=== PATIENT | male | born 1980 | race African-American/Black ===

== ENCOUNTER 2018-05-12 18:25 | Observation (INO) | payer SELFPAY ==
[2018-05-12 18:52] LABS: #Lymphocytes 0.8 thou/uL (1.20-3.40); #Monocytes 0.3 thou/uL (0.11-0.59); #Neutrophils 3.1 thou/uL (1.40-6.50); %Basophils 0.3 % (0.0-1.0); %Eosinophils 0.3 % (0.0-10.0); %Lymphocytes 18.1 % (21.0-51.0); %Monocytes 6.4 % (0.0-10.0); %Neutrophils 74.8 % (42.0-75.0); Hemoglobin 11.7 g/dL (14.0-18.0); Mean Corpuscular HGB CONC 33.6 g/dL (32.0-36.0); Mean Corpuscular Hemoglobin 31.7 pg (27.0-31.0); Mean Corpuscular Volume 94.4 fL (78.0-98.0); Mean Platelet Volume 6.9 fL (7.4-10.4); Platelet Count 212 thou/uL (130-400); White Blood Cell (WBC) Count 4.2 thou/uL (4.8-10.8)
[2018-05-12 19:18] LABS: ALT (SGPT) 44 U/L (8-55); AST (SGOT) 54 U/L (5-34); Alkaline Phosphatase 65 U/L (40-150); Anion Gap 19 mmol/L (10-20); BUN (Urea Nitrogen) 15 mg/dL (8.9-20.6); Bilirubin, Total 0.4 mg/dL (0.2-1.2); Calc. Creatinine Clearance 0 mL/min (70-130); Calcium 9.1 mg/dL (7.8-10.44); Carbon Dioxide 16 mmol/L (22-29); Chloride 108 mmol/L (98-107); Estimated GFR-MDRD 76; Globulin 4.1 g/dL (2.4-3.5); Glucose 70 mg/dL (70-105); Lipase 18 U/L (8-78); Potassium 3.9 mmol/L (3.5-5.1); Protein, Total 8.1 g/dL (6.0-8.3); Sodium 139 mmol/L (136-145)
[2018-05-12 19:41] LABS: Acetaminophen Less than 6.0 mcg/mL (10.0-30.0); Alcohol 36 mg/dL (Less than 10); Salicylate Less than 8.0 mg/dL (15.0-30.0)
[2018-05-12 19:41] LABS: Troponin I Less than 0.010 ng/mL (< 0.028)
[2018-05-12 20:59] LABS: Bilirubin Negative (Negative); Blood, Urine Negative (Negative); Clarity CLEAR (Clear); Glucose, Urine (Dipstick) Negative (Negative); Leukocyte Negative (Negative); Nitrite Negative (Negative); Protein, Urine (Dipstick) 30 mg/dL (Neg-Trace); Specific Gravity, Urine 1.033 (1.002-1.036); Urobilinogen 0.2 mg/dL (0.2-1.0); pH, Urine 5.5 (5.0-9.0)
[2018-05-12 21:00] LABS: Bacteria/HPF None Seen HPF (None Seen); Hyaline Casts/LPF 0-3 HYALINE CAST LPF (0-3 Hyaline); Pathc Cast-AUWi Flag 0.14 (0-2.49); RBC/HPF None Seen HPF (0-3); Squamous Epithelial 0-3 HPF (0-3); WBC/HPF 0-3 HPF (0-3)
[2018-05-12 21:09] LABS: Cocaine Metabolite Screen Detected (NotDetected); Medtox Reader # READER 1; Methamphetamine Not Detected (NotDetected); Opiate Screen Not Detected (NotDetected); Phencyclidine (PCP) Not Detected (NotDetected); THC/Cannabinoid Screen Not Detected (NotDetected)
[2018-05-12 21:10] LABS: Amphetamine Not Detected (NotDetected); Barbiturates Screen Not Detected (NotDetected); Benzodiazepine Screen Not Detected (NotDetected); Medtox Control Line Valid? VALID (VALID); Methadone Not Detected (NotDetected); Oxycodone Screen Not Detected (NotDetected); Tricyclic Screen Not Detected (NotDetected)
[2018-05-12] MEDS ORDERED: Acetaminophen 325 MG TAB PO PRN (22:42)
[2018-05-12] MEDS ORDERED: Ondansetron HCl/PF 4 MG/2 ML Vial IVP PRN (22:42)
[2018-05-12] MEDS ORDERED: Ondansetron ODT 4 MG TAB SL PRN (22:42)
[2018-05-12] MEDS ORDERED: Famotidine/PF 20 mg/2ml Vial SLOW IVP SCH (23:45)
[2018-05-13] MEDS: Sodium Chloride 0.9% 1,000 ML IV SCH ×2 (00:03→12:41)
[2018-05-13 00:22] LABS: Carbamazepine-Tegretol Less than 1.9 ug/mL (4.0-12.0)
[2018-05-13 00:26] VITALS: BMI 21.2
[2018-05-13 05:01] LABS: Anion Gap 9 mmol/L (10-20); BUN (Urea Nitrogen) 15 mg/dL (8.9-20.6); Calc. Creatinine Clearance 85 mL/min (70-130); Calcium 8.5 mg/dL (7.8-10.44); Carbon Dioxide 23 mmol/L (22-29); Chloride 107 mmol/L (98-107); Estimated GFR-MDRD Greater than 90; Glucose 137 mg/dL (70-105); Potassium 3.8 mmol/L (3.5-5.1); Sodium 135 mmol/L (136-145)
[2018-05-13 05:09] LABS: CKMB 3.3 ng/mL (0-6.6); Troponin I Less than 0.010 ng/mL (< 0.028)
[2018-05-13 05:12] LABS: #Lymphocytes 1.1 thou/uL (1.20-3.40); #Monocytes 0.4 thou/uL (0.11-0.59); #Neutrophils 1.1 thou/uL (1.40-6.50); %Basophils 0.6 % (0.0-1.0); %Eosinophils 1.4 % (0.0-10.0); %Lymphocytes 43.1 % (21.0-51.0); %Monocytes 14.4 % (0.0-10.0); %Neutrophils 40.5 % (42.0-75.0); Hemoglobin 11.3 g/dL (14.0-18.0); Mean Corpuscular HGB CONC 33.7 g/dL (32.0-36.0); Mean Corpuscular Hemoglobin 31.5 pg (27.0-31.0); Mean Corpuscular Volume 93.7 fL (78.0-98.0); Mean Platelet Volume 7.3 fL (7.4-10.4); Platelet Count 210 thou/uL (130-400); Red Blood Cell (RBC) Count 3.59 mill/uL (4.70-6.10); White Blood Cell (WBC) Count 2.7 thou/uL (4.8-10.8)
--- NOTE | 2018-05-13 08:58 | CT ---
CT BRAIN: 05/12/18 HISTORY: Patient with history of taking PCP, crack cocaine, altered mental status. CT images of the brain demonstrate the brain to be unremarkable. No evidence of intracranial masses, hemorrhages, strokes or contusions seen. Ventricles are of normal size. IMPRESSION: Normal CT brain. POS: [facility]
--- NOTE | 2018-05-13 08:58 | RAD ---
AP VIEW CHEST: 05/12/18 HISTORY: Altered mental status. Chest pain. AP view chest is obtained. The lungs are well aerated. No evidence of active intrathoracic disease se en. No evidence of effusions, pneumonia or pneumothorax seen. IMPRESSION: Unremarkable AP view chest. POS: [facility]
[2018-05-13] MEDS ORDERED: Famotidine/PF 20 mg/2ml Vial SLOW IVP SCH (09:00)
[2018-05-13] MEDS ORDERED: Enoxaparin Sodium 40 MG/0.4 ML SYRINGE SC SCH (09:00)
--- NOTE | 2018-05-13 09:02 | HP ---
CHIEF COMPLAINT: Possible altered mental status. HISTORY OF PRESENT ILLNESS: Patient is a 37-year-old male with a history of seizure who apparently i s on Tegretol and has not been taking his medication. Patient was very drowsy when I saw him in his room. However, he was able to answer a few questions and most of the history was reviewed from the [facility] and by the nursing staff. Apparently what happened was that the patient started feeling unwell, so he took 3 pills of his friend's Tegretol which he thought was Tegretol. He does not recall the d os[place] and initially stated that he had smoked possible even PCP when EMS arrived to pick him up. Th e patient was found of very lethargic on the floor by family who alerted the EMS, so while he was com ing into the hospital, he told the EMS that he had done some PCP; however, when he came in to our [facility] ER, patient was more alert and stated that he denied using any substance abuse. He only to ok his friend's 3 Tegretol to make him feel better. Patient is unable to tell me who prescribes him his Tegretol either. PAST MEDICAL HISTORY: Seizures. PAST SURGICAL HISTORY: None. FAMILY HISTORY: Patient does not recall anything. ALLERGIES: No known drug allergies. MEDICATIONS: He takes Tegretol, unknown dose. REVIEW OF SYSTEMS: All negative except the ones mentioned above in HPI. One more thing I would add is the patient did complain of some mild abdominal pain today. SOCIAL HISTORY: Patient denies any alcohol use or drug use. He states that he does smoke cigarettes , half a pack a day. LABORATORY DATA: As of the following: WBC of 4.2, hemoglobin of 11.7, hematocrit of 34.9, platelets of 212. Sodium of 139, potassium of 3.9, bicarbonate of 16, BUN of 15, creatinine 1.29, AST of 54, CK of 306. Troponin is less than normal. The patient also had a chest x-ray which I reviewed was tien bradley. CT scan read is still not available. PHYSICAL EXAMINATION: VITAL SIGNS: Temperature 98.5, pulse 76, respirations 16, O2 sat 100% on room air, blood pressure 12 2/88. GENERAL: He is awake, alert, oriented x3; however, appears very drowsy and is very hard to keep up. CARDIOVASCULAR: S1, S2 present. No murmurs, rubs or gallops. LUNGS: Clear to auscultation. No rhonchi or wheezes noted. ABDOMEN: Soft, mild tenderness in the epigastric area and left lower quadrant. Otherwise, bowel viri nds are present. NEUROLOGICAL: Intact. No focal neurological deficits noted. SKIN: Intact. No lesions noted. He does have some tattooing around. EKG: I did review the EKG. He did have a T-wave inversion in one lead. Currently, he is denying an y chest pain. Troponin x1 is negative, trended x3. ASSESSMENT AND PLAN: Patient is a very pleasant 37-year-old male who came into the hospital for alte red mental status. 1. Altered mental status, possible even a seizure versus overdose, I am not sure if this is an overd ose. Patient states that he took 3 pills of his friend. I am not sure if he was combining that with some substance abuse since he did have since his UDS was positive for cocaine. At this time, I will also check an EEG on him. I have requested the nursing staff to get a pharmacy, so we can call the pharmacy in the morning to get his dose of Tegretol and start him back on the medication. Also, we w ill check Tegretol level to make sure there is no overdose. In terms of that, patient stated that he did not try to hurt himself. He just thought that taking his friend's pills which was similar to hi s pills, we would make him feel a little bit better. 2. Epigastric pain. We will start the patient on a PPI. Continue to monitor. 3. Deep venous thrombosis prophylaxis. We will put patient on subQ heparin.
[2018-05-13 11:41] VITALS: BP 119/66; TEMP 98.1
--- NOTE | 2018-05-13 11:54 | PDOC.EVN ---
Event Note - Event Note Event Note: Record reviewed and patient examined. He's not sure what he took. Says a friend gave it to him and told him it was Tegretol so he took it. He does not routinely take Tegretol unless he is in intermediate. Says he can't afford it. He reports LLQ abdominal pain. Says it was present for 4-5 days. Normal B/B function. Eating and drinking well. No fever. TTP on exam, but exaggerated. Remainder of exam normal. Rechecking labs. If ok, will discharge. Recommend outpatient followup for the abdominal pain. WBC low. Tegretol level negative. Not likely agranulocytosis. Check HIV given his cocaine use. Recheck CK, Tegretol level.
[2018-05-13 13:05] LABS: Carbamazepine-Tegretol Less than 1.9 ug/mL (4.0-12.0)
[2018-05-13] MEDS ORDERED: Ibuprofen 600 MG TAB PO PRN (13:16)
[2018-05-13 14:03] LABS: HIV (1/2) Antibody/Antigen Reflxed Confirmation (NonReactive)
[2018-05-13 14:04] LABS: HIV 1/2 INDEX 895.91 S/CO (<1.00)
--- NOTE | 2018-05-13 22:03 | DIS ---
DATE OF ADMISSION: 05/12/2018 DATE OF DISCHARGE: 05/13/2018 DISCHARGE DIAGNOSES: 1. Altered mental status. 2. Drug ingestion. 3. Drug screen positive for cocaine. 4. Human immunodeficiency virus positivity, newly diagnosed. 5. Left lower quadrant pain. HOSPITAL COURSE: This patient is a 37-year-old male with a history of admitted cocaine use and histo ry of having been incarcerated. The patient presented via the emergency department after being found altered. The patient indicated that he takes Tegretol. He has been prescribed Tegretol to take for history of seizures. He does not take the medication routinely. He states that he was not able to afford it and usually only takes it when he is in retirement. The patient stated that he did not feel righ t, so he took 3 pills that a friend gave him and told him were Tegretol. He admits that he has no id ea what they actually were. Subsequently, he had some altered mental status and some obtundation and was brought to the emergency department. The patient's urinary drug screen was positive for cocaine . He complained of some epigastric pain and was started on a PPI. Overnight, the patient did well. Following morning, he states he only had some mild left lower quadrant abdominal pain, which he repo rts had been present for several days prior to this incident. He had been eating well, drinking well and having normal bowel and bladder habits. The remainder of exam was unremarkable. He was awake a nd alert and had a normal baseline mental status. His labs initially were notable for a white count of 4.2 with 78% neutrophils. We have repeated his white count and it was 2.7 with 45% neutrophils. He also initially had a CK at 306 and a Tegretol level was less than 1.9. The patient had repeat lab s following morning with a Tegretol level still being less than 1.9. CK was down to 186 and his trop onin remained negative. The patient was given some ibuprofen for his left lower quadrant pain. HIV screen was obtained in light of the leukopenia and this did in fact return are reactive. I met with the patient and told him of the results and educated him of the process of doing confirmation with zack send out lab. The patient reports that he has risk factors of both unprotected sex and IV drugs. He believes he had been tested in the past, but was never told results. He was educated on safe prac tices for living with HIV and told that he would need to follow up with the Infectious Disease doctor in order to get established on a treatment regimen. He was amenable to that plan and all of his que stions were answered. With that, the patient was felt to be stable for discharge to home. DISPOSITION: The patient will be discharged. He will have a normal diet and activity level. He is to follow up with Dr. Covington. He is encouraged to take the Tegretol whenever possible and establish w ith a PCP in order to be maintained on this. We will refer to Neurology for alternatives. Given the leukopenia, this is probably not the best choice for him because of the risk of agranulocytosis. Th erefore, I will not continue that with a prescription at this time and defer that to a PCP who will b e able to follow him. The patient should return to the emergency department should he have any probl ems prior to that time.
[2018-05-15 16:19] LABS: HIV 1 Antibody Multi-Spot Positive (Negative); HIV 2 Antibody Multi-Spot Negative (Negative); HIV Multi-spot Interp HIV-1 Positive (.)
== END 2018-05-13 15:14 | disposition home or self-care (01) ==
LOC: ERS 18:25 → 2SW 22:31
PROVIDERS: ADMIT Internal Medicine; ATTEND Internal Medicine
DX: R41.82 Altered mental status, unspecified (principal); T40.5X5A Adverse effect of cocaine, initial encounter; B20 Human immunodeficiency virus [HIV] disease; F17.210 Nicotine dependence, cigarettes, uncomplicated; Z79.899 Other long term (current) drug therapy
CPT/HCPCS: 36415; 70450; 71045; 80048; 80053; 80156; 80306; 80307; 81003; 81015; 82550; 82553; 83690; 83735; 84484; 85025; 86701; 86702; 87389; 93005; 94760; 96361; 96372; 96374; 96376; G0378; J1650; S0028

== ENCOUNTER 2019-06-18 05:27 | Emergency (ER) | payer SELFPAY ==
[2019-06-18] MEDS ORDERED: Dexamethasone 10 MG/ML VIAL ONE (07:45)
[2019-06-18] MEDS ORDERED: Azithromycin 250 MG TAB ONE (07:45)
[2019-06-18] MEDS ORDERED: Albuterol Sulfate 2.5 mg/3 ml Neb ONE (07:54)
--- NOTE | 2019-06-18 08:41 | RAD ---
PA AND LATERAL VIEWS CHEST: HISTORY: Chest pain, cough. FINDINGS: The heart size is normal. There is an infiltrate in the lung bases, left greater than right. No pne umothoraces or large effusions are seen. IMPRESSION: Bibasilar pneumonia. POS: OFF
--- NOTE | 2019-06-22 14:42 | EKG ---
Test Reason : CP Blood Pressure : / mmHG Vent. Rate : 088 BPM Atrial Rate : 088 BPM P-R Int : 174 ms QRS Dur : 092 ms QT Int : 378 ms P-R-T Axes : 079 068 082 degrees QTc Int : 457 ms Normal sinus rhythm Nonspecific T wave abnormality Abnormal ECG Confirmed by SCOOTER Colon, JITENDRA ([id number]), legal editor LEYLA FUENTES ([id number]) on 06/22/2019 2:42:19 PM Referred By: SCOOTER Confirmed By:JITENDRA HELMS M.D.
== END 2019-06-18 08:36 | disposition home or self-care (01) ==
LOC: ERS 05:27
DX: J20.9 Acute bronchitis, unspecified (principal); J45.909 Unspecified asthma, uncomplicated; F17.210 Nicotine dependence, cigarettes, uncomplicated
CPT/HCPCS: 71046; 93005; 94640; 96374; J1100; J7611; J7620

== ENCOUNTER 2019-07-08 13:29 | Emergency (ER) | payer SELFPAY ==
--- NOTE | 2019-07-08 14:40 | RAD ---
FRONTAL VIEW CHEST: Date: 07/08/19 COMPARISON: 06/18/19. INDICATION: History of chest pain and cough. FINDINGS: Persistent bibasilar densities remain. Cardiac silhouette is stable. No significant interval change o therwise depicted. IMPRESSION: Persistent bibasilar densities indicative of multifocal pneumonia. Follow-up to resolution is recommended. POS: [facility]
[2019-07-08 15:11] LABS: #Lymphocytes 1.2 thou/uL (1.20-3.40); #Monocytes 0.7 thou/uL (0.11-0.59); #Neutrophils 4.8 thou/uL (1.40-6.50); %Basophils 0.3 % (0.0-1.0); %Eosinophils 0.1 % (0.0-10.0); %Lymphocytes 17.1 % (21.0-51.0); %Monocytes 10.6 % (0.0-10.0); %Neutrophils 71.8 % (42.0-75.0); Hemoglobin 8.2 g/dL (14.0-18.0); Mean Corpuscular HGB CONC 33.3 g/dL (32.0-36.0); Mean Corpuscular Hemoglobin 29.9 pg (27.0-31.0); Mean Corpuscular Volume 89.8 fL (78.0-98.0); Mean Platelet Volume 7.6 fL (7.4-10.4); Platelet Count 345 thou/uL (130-400); Red Blood Cell (RBC) Count 2.73 mill/uL (4.70-6.10); White Blood Cell (WBC) Count 6.7 thou/uL (4.8-10.8)
[2019-07-08 16:04] LABS: ALT (SGPT) 13 U/L (8-55); AST (SGOT) 22 U/L (5-34); Albumin 3.3 g/dL (3.5-5.0); Alkaline Phosphatase 52 U/L (40-150); Anion Gap 14 mmol/L (10-20); BUN (Urea Nitrogen) 12 mg/dL (8.9-20.6); Bilirubin, Total 0.3 mg/dL (0.2-1.2); CK (CPK) 60 U/L (30-200); Calc. Creatinine Clearance 0 mL/min (70-130); Calcium 8.6 mg/dL (7.8-10.44); Carbon Dioxide 23 mmol/L (22-29); Chloride 103 mmol/L (98-107); Estimated GFR-MDRD Greater than 90; Globulin 4.6 g/dL (2.4-3.5); Glucose 94 mg/dL (70-105); Potassium 3.9 mmol/L (3.5-5.1); Protein, Total 7.9 g/dL (6.0-8.3); Sodium 136 mmol/L (136-145)
[2019-07-08] MEDS ORDERED: Azithromycin 250 MG TAB ONE (16:55)
== END 2019-07-08 17:06 | disposition home or self-care (01) ==
LOC: ERS 13:29
DX: J18.9 Pneumonia, unspecified organism (principal); Z71.6 Tobacco abuse counseling; J45.909 Unspecified asthma, uncomplicated; F17.210 Nicotine dependence, cigarettes, uncomplicated
CPT/HCPCS: 36415; 71045; 80053; 82550; 83605; 84484; 85025; 87040; 93005; 94640; 99406

== ENCOUNTER 2020-03-02 10:54 | Inpatient (IN) | payer OTHER ==
[2020-03-02] MEDS ORDERED: Propofol 1,000 MG/100 ML VIAL IV ONE (12:45)
[2020-03-02 13:03] LABS: Actual Bicarbonate (HCO3a) 23.5 mEq/L (22-28); Base Excess (BEa) -5.6 mEq/L (-2.0 to +3.0); Calcium, Ionized 1.08 mmol/L (1.12-1.30); Carboxyhemoglobin (COHb) 0.6 gm% (0.0-3.0); Hemoglobin (Hb) 11.7 g/dL (14.0-18.0); O2 Tension (PaO2) 76.4 mmHg (80.0-100.0); Potassium - ABG Lab 4.26 mmol/L (3.70-5.30)
[2020-03-02 13:08] LABS: CO2 Tension 64.2 mmHg (35.0-45.0); Puncture Site RR; pH, Arterial 7.18 (7.35-7.45)
[2020-03-02] MEDS ORDERED: Acetaminophen 325 MG/10.15 ML UDCUP PO PRN (13:41)
[2020-03-02] MEDS ORDERED: CCU Electrolyte Replacement 1 EACH IVPB ONE (13:41)
[2020-03-02] MEDS ORDERED: Ventilator Sedation Protocol 1 EACH FS SCH (13:45)
[2020-03-02] MEDS ORDERED: Lorazepam 2 MG/ML VIAL SLOW IVP PRN (13:56)
[2020-03-02] MEDS ORDERED: Morphine 2 MG/ML SYRINGE SLOW IVP PRN (13:56)
[2020-03-02] MEDS ORDERED: Potassium Phosphate 12 MMOL in Sodium Chloride 0.9% 250 ML 250 ML IV PRN (13:56)
[2020-03-02] MEDS ORDERED: fentaNYL Citrate/PF 2,000 MCG in Sodium Chloride 0.9% 60 ML IV SCH (13:56)
[2020-03-02] MEDS ORDERED: CCU ELECTROLYTE REPLACEMENT PROTOCOL FS PRN (13:56)
[2020-03-02] MEDS ORDERED: Fentanyl BOLUS 250 ML IVPB PRN (13:56)
[2020-03-02] MEDS ORDERED: PHOS-NAK 1 PKT PACK PO PRN ×2 (13:56)
[2020-03-02] MEDS ORDERED: Magnesium Oxide 400 MG TAB PO PRN ×2 (13:56)
[2020-03-02] MEDS ORDERED: Potassium Phosphate 9 MMOL in Sodium Chloride 0.9% 100 ML IVPB PRN (13:56)
[2020-03-02] MEDS ORDERED: DISCONTINUE PREVIOUS NARCOTIC PAIN MEDICATIONS AND BENZODIAZEPINES FS SCH (13:56)
[2020-03-02] MEDS ORDERED: Propofol BOLUS 1,000 MG/100 ML VIAL IV PRN (13:56)
[2020-03-02] MEDS ORDERED: Potassium Chloride 40 MEQ in Sodium Chloride 0.9% 250 ML 250 ML IVPB PRN (13:56)
[2020-03-02] MEDS ORDERED: Potassium Chloride 20 MEQ TAB PO PRN (13:56)
[2020-03-02] MEDS ORDERED: Potassium Chloride 40 MEQ in Premix Bag 1 BAG IVPB PRN (13:56)
[2020-03-02] MEDS ORDERED: Propofol 1,000 MG/100 ML VIAL IV PRN (13:56)
[2020-03-02] MEDS ORDERED: Magnesium 2 GM/50 ML 2 GM in Premix Bag 1 BAG IVPB PRN (13:56)
[2020-03-02] MEDS ORDERED: Potassium Phosphate 15 MMOL in Sodium Chloride 0.9% 250 ML 250 ML IV PRN (13:56)
--- NOTE | 2020-03-02 14:08 | PDOC.FPRHP ---
- History of Present Illness Chief Complaint: Fever History of Present Illness: 39yo male presents as a transfer from [facility] ED for acute hypoxic respiratory failure requiring intubation. Initially presented for fever. Reported fever, SOB x3 days with worsening symptoms. EMS recorded temp of 103.2. In the ED tachypnea, tachycardia. Reported to smoking 1ppd. Also reported he had been "runnin around [facility]." But denied COVID exposure. Reported some nausea. Denied vomiting and diarrhea. Due to his worsening respiratory status he was placed on a nonrebreather but continued to have worsening hypoxia therefore was intubated. Had CXR showing LLL infiltrate. He received Bactrim, Azithromycin, and Ceftriaxone prior to transfer. In his belongings his bottle of Biktarvy was found but label was worn and could only make out pharmacy in [place]. Pharmacist reported the last time this med had been picked up was Jul 2019. Was prescribed by Dr Covington. ED Course: NS 30mg/kg, Azithromycin 500mg, Ceftriaxone 2 g. - Allergies/Adverse Reactions Allergies Allergy/AdvReac Type Severity Reaction Status Date / Time No Known Allergies Allergy Verified 01/19/20 01:48 - Home Medications Medication Instructions Recorded Confirmed Type Unobtainable 05/12/18 05/12/18 History - History PMHx: HIV, Hx of seizures PSHx: Unable to obtain due to intubated. FHx: Unable to obtain Social: 1ppd smoker. Hx of drug use including cocaine per chart review. Unknown alcohol use - Review of Systems ROS unobtainable: due to endotracheal tube - Vital signs BP: 120/87 HR: 120 RR: 25 Tmax: 96.7 Pox: 98% on RA Wt: 56.7kg - Physical Exam -Constitutional: Intubated and sedated. HEENT: normocephalic and atraumatic, PERRLA Neck: trachea midline Heart: no murmurs/rubs/gallops (tachycardic), pulses present, no edema Lungs: other (Diffuse expiratory and inspiratory rhonchi and crackles) Abdomen: soft Musculoskeletal: normal structure Skin: no rash/lesions Heme/Lymphatic: no unusual bruising or bleeding FMR H&P: Results - Labs Lab results: ABG pH 7.18 (7.35-7.45) L* 03/02/20 13:00 ABG pCO2 64.2 mmHg (35.0-45.0) H* 03/02/20 13:00 ABG pO2 76.4 mmHg (80.0-100.0) L 03/02/20 13:00 - Radiology Interpretation Chest x-ray Status: report reviewed by me Additional comment: LLL infiltrate FMR H&P: A/P - Plan Sepsis 2/2 Acute hypoxic respiratory failure 2/2 pneumonia. - Leukopenia WBC 3, fever, initially tachycardic and tachypneic - PCP vs COVID vs bacterial - COVID swab pending. Flu neg. - Intubated / at [facility]. Initial AB.48/27.5/58.9/20.1 - CXR: LLL infiltrate - Due to HIV positive status will continue Azithromycin 500mg and Ceftriaxone 2g , Fluconazole with addition of Bactrim to cover PCP. Consulted Dr Covington for further recommendations. - More labs to follow at the recommendation of Dr Covington - Admit to ICU, will initiate Sedation protocol. - Will consult pulmonology HIV - Noncompliant with Biktarvy - Will need started on antivirals. - Follows with Dr Covington, consulted, apprec recs - Ordered CD4 and viral load. Normocytic Anemia - Hgb 10.1, Improved from 8.2 last admission. - Ordered Iron/Vit B12/folic acid studies and peripheral smear. Transaminitis - AST/ALT ratio >2 suggest alcohol. Hyponatremia - 130, ordered urine studies Hx of seizures - Per chart review was on Carbamazepime. Only takes while in detention as he cannot afford it. Hx of drug abuse - Ordered UDS Hx of Incarceration DVT ppx: Lovenox GI ppx: Famotidine Dispo: Admit to ICU. >48hrs FMR H&P: Upper Level - Plan Date/Time: 03/02/20 [id number] I, [], have evaluated this patient and agree with findings/plan as outlined by graduate internship resident. Pertinent changes/additions are listed here. Addendum - Attending - Attending Attestation Date/Time: 03/02/20 5930 I personally evaluated the patient and discussed the management with Dr. Alexander I agree with the History, Examination, Assessment and Plan documented above with any addition or exceptions noted below - 39 yo male with h/o HIV and possibly seizure d/o presented to ER with complaint of fever and SOB. Symptoms started in last 304 days. Initially placed on 2L NC but had progressive increased work of breathing and decreasing O2 sats- changed to non- rebreather and then intubated due to continued declining status. Prior to intubation did endorse that he had not been taking his antiretrovirals and had not seen Dr. Covington in some time. PMH/Meds/SH reviewed and agree with resident's documentation. T 103.2 (@CSER). BP 120/87 P120 RR18 92% Exam repeated by me and agree with resident's findings. Labs: WBC=3.0, Hgb10.1. CXR- LLL infiltrate. A/P: 1) Sepsis secondary to pneumonia uncertain type - Admit to ICU. Vent support. Pulmonary consulted and appreciate recommendations. Continue Rocephin/Zithromax/Bactrim. Blood, urine cultures collected. COVID swab pending. 2) HIV (+)- consult ID. Appreciate recommendations. Will check CD4 count and viral load. Antiretrovirals started as per ID.
[2020-03-02 14:43] LABS: Actual Bicarbonate (HCO3a) 23.2 mEq/L (22-28); Base Excess (BEa) -3.4 mEq/L (-2.0 to +3.0); CO2 Tension 48.2 mmHg (35.0-45.0); Calcium, Ionized 1.06 mmol/L (1.12-1.30); Carboxyhemoglobin (COHb) 0.2 gm% (0.0-3.0); Hemoglobin (Hb) 11.1 g/dL (14.0-18.0); Potassium - ABG Lab 4.18 mmol/L (3.70-5.30)
[2020-03-02 14:45] LABS: O2 Tension (PaO2) 54.9 mmHg (80.0-100.0); Puncture Site LRA
[2020-03-02] MEDS: Vecuronium 10 MG VIAL IVP PRN ×2 (14:49→22:30)
[2020-03-02] MEDS: Sodium Chloride 0.9% 1,000 ML IV SCH (15:19)
[2020-03-02] MEDS: Azithromycin 500 MG in Sodium Chloride 0.9% 250 ML 250 ML IVPB SCH (16:25)
[2020-03-02] MEDS: cefTRIAXone\\ROCEPHIN 2 GM in Sodium Chloride 0.9% 100 ML IVPB SCH (18:06)
[2020-03-02] MEDS: methylPREDNISolone Sod Succ 40 MG VIAL IVP SCH (18:09)
[2020-03-02 18:16] LABS: Amphetamine Not Detected (NotDetected); Barbiturates Screen Not Detected (NotDetected); Benzodiazepine Screen Not Detected (NotDetected); Cocaine Metabolite Screen Detected (NotDetected); Medtox Control Line Valid? VALID (VALID); Medtox Reader # READER 4; Methadone Not Detected (NotDetected); Methamphetamine Not Detected (NotDetected); Opiate Screen Not Detected (NotDetected); Oxycodone Screen Not Detected (NotDetected); Phencyclidine (PCP) Not Detected (NotDetected); THC/Cannabinoid Screen Not Detected (NotDetected); Tricyclic Screen Not Detected (NotDetected)
[2020-03-02] MEDS: Fluconazole In NaCl,Iso-Osm 100 MG in Admixture Fee 2 EACH IVPB SCH (18:16)
[2020-03-02] MEDS ORDERED: Sterile Water 10 ML ONE (19:53)
[2020-03-02] MEDS: Lopinavir/Ritonavir 80 MG/20 MG per ML Oral Solution PER TUBE SCH (20:30)
[2020-03-02] MEDS: Famotidine/PF 20 mg/2ml Vial SLOW IVP SCH (20:31)
[2020-03-02] MEDS: DEXTROSE 5% IVPB SCH (20:32)
[2020-03-02] MEDS: SULFAMETHOXAZOLE IVPB SCH (20:32)
[2020-03-02] MEDS: WATER IVPB SCH (20:32)
[2020-03-02] MEDS: TRIMETHOPRIM IVPB SCH (20:32)
--- NOTE | 2020-03-02 20:38 | CON ---
DATE OF CONSULTATION: 03/02/2020 CONSULTING PHYSICIAN: Dr. Lim. REASON FOR CONSULTATION: Pneumonia, acute respiratory failure. The following encompasses 45 minutes of critical care time. HISTORY OF PRESENT ILLNESS: The patient is a 39-year-old male, who presented to the [facility] Emergency Room with a 2-week history of cough, high fever, and shortness of breath. He has a known history of HIV, but has not been taking his medications. The patient is intubated at the time of my exam and cannot give a history, so what I have is obtained from the ER documentation at that facility. According to the ER note, he slowly decompensated in the ER and was not oxygenating very well. Therefore, he was endotracheally intubated prior to transfer to this facility. I have had the opportunity to see both preintubation and postintubation x-rays from that facility as a left lower lobe infiltrate. PAST MEDICAL HISTORY: HIV. PAST SURGICAL HISTORY: Left arm surgery in the past. HOME MEDICATIONS: Apparently, he has not been taking any. SOCIAL HISTORY: The patient smokes one pack per day. Does not consume alcohol. Does not use street drugs. Never had tuberculosis. Denied any COVID-19 exposure. REVIEW OF SYSTEMS: Cannot be obtained because the patient is currently on mechanical ventilation. PHYSICAL EXAMINATION: VITAL SIGNS: His heart rate is 113, O2 saturation 94%, respiratory rate 25, and his temperature 103.2. The patient is currently intubated on mechanical ventilation. GENERAL: Appears calm. HEENT: Pupils reactive 2 mm. Oropharynx, poor color. NECK: No adenopathy or JVD. LUNGS: Diffuse crackles more so on the left than the right. CARDIOVASCULAR: S1 and S2. Tachycardic. No murmur. ABDOMEN: Soft. No hepatosplenomegaly. EXTREMITIES: No clubbing, cyanosis, or edema. LABORATORY DATA: ABG; pH 7.18, pCO2 of 64, pO2 of 76 that is on SIMV rate 16, tidal volume 450, PEEP 10, pressure support 10, and FiO2 of 60%. The remainder of his labs are from [place] and are as follows: Sodium 130, potassium 3.9, chloride 95, CO2 of 26, BUN 17, creatinine 1.3, and glucose 115. Serum albumin is 1.7. White blood cell count 3, hematocrit 29.9, and platelet count 208 with 10% bands, 65% neutrophils. ASSESSMENT: 1. Diffuse bilateral pneumonia, left greater than right. 2. Human immunodeficiency virus, noncompliant. 3. Acute hypoxic respiratory failure, requiring mechanical ventilation. 4. Anemia. 5. Hypoalbuminemia. PLAN: The patient has been intubated. He is on mechanical ventilation. He likely needs to be treated for Pneumocystis pneumonia. We will go ahead and draw a CD4 count and HIV viral load. I have started him on Bactrim and steroids empirically. He may require paralytics. I have switched him over to bilevel ventilation. He may require prone ventilation before all is said and done. I will follow with you. Job ID: [id number]
--- NOTE | 2020-03-02 21:48 | CON ---
DATE OF CONSULTATION: 03/02/2020 REASON FOR CONSULTATION: HIV seropositive status, advanced immunosuppression, respiratory failure. HISTORY OF PRESENT ILLNESS: A 39-year-old whom I last saw in June 2019, when he presented with a history of longstanding HIV seropositive status without proper treatment. At that time, he had CD4 of 50 and a viral load of 346,000. He was cachectic with oral candidiasis, odynophagia, and there was a concern with Pneumocystis, so patient was admitted to [facility] and I will have to review the data from [place] and have not seen him since he did not show up for followups and the nurse to call his pharmacy. Apparently, he has not filled any of his prescriptions since the last year. So now, he presents to the hospital. He apparently was transferred from another hospital. He had respiratory failure and had to be intubated. I do not have a lot of details from his admission yet and we will have to review the data from the other hospital. He is now in the intensive care unit, and he is sedated and intubated. The nurse found an old chicken wing in his bag. He also had usually associates with the use of crack cocaine. He had a bottle of Biktarvy, which is his antiretroviral therapy. I recognized a bottle as one of my bottles that I dispensed for as a sample. Those usually have only seven tablets per bottle, so I do not think that he was taking the medication faithfully. PAST MEDICAL HISTORY: Includes advanced immunosuppression associated with HIV infection. The last CD4 was 50 last year. The viral load was high at 300,000 and he had been admitted to [facility]. He did have severe odynophagia and I will have to review the entire workup that was done there to see what kind of opportunistic infectious processes were diagnosed. There was a concern with Pneumocystis then as well. The patient has no known drug allergy history. Has a history of seizure activity in the past, had been on Biktarvy and Tegretol for seizures. SOCIAL HISTORY: Chronic smoker, although no drug use is reported in the history here. He may have some drug use activity still ongoing. FAMILY HISTORY: Not available. PHYSICAL EXAMINATION: VITAL SIGNS: With a T-max 98.5, blood pressure 91/67, pulse 107, respirations 25, O2 saturation 100. SKIN: Shows areas of skin dryness in the extensor aspect. Peripheral IV access. He has a Lucas catheter in place. He has no lymphadenopathy. He is cachectic with temporal wasting noted. Constricted pupils. Could not evaluate fundi. Oral cavity, hard to evaluate. Oral tracheal tube or gastric tube. Scattered rhonchi noted in lung leos. HEART: S1-S2 regular rate. ABDOMEN: Scaphoid without ascites or organomegaly. No bladder distention. No genital abnormalities. No joint inflammatory activity. No edema. Pulses 1+ in dorsalis pedis. I could not elicit any motion in his appendicular structures at the moment, probably from sedation. Cognitive function is not possible to evaluate at the moment. LABORATORY DATA: White cell count 4.2, now 6.7. Hemoglobin 11.7, platelets 345 , 74% neutrophils. He has lymphocytopenia, which is expected in view of his advanced deficiency associated with HIV infection. Chemistry was fairly unremarkable. Albumin is 3.3. CK was normal. Urinalysis was fairly unremarkable. Apparently , COVID is pending at the moment. He is in isolation. IMAGING: Included a chest x-ray with bibasilar densities indicative of multifocal pneumonia, ASSESSMENT: Longstanding HIV infection with advanced immunosuppression and poor adherence to anti-retroviral therapy or opportunistic infection prophylaxis. Poor adherence to clinic visits. Now, he comes in with respiratory failure, bilateral pneumonia. Differential diagnosis includes Pneumocystis pneumonia plus additional opportunistic process. [place] esophagitis is likely. Other forms of esophagitis are not ruled out. COVID-19 is in the process of being ruled out. The lung exam is more consistent with Pneumocystis though. We will go ahead and start him on anti Pneumocystis treatment including corticosteroids, Diflucan for possible/likely esophageal candidiasis. Submit opportunistic process. Additional opportunistic process workup. Submit Pneumocystis, PCR, and tracheal aspirate, Fungitell assay, histoplasma antigen, cryptococcus antigen, CMV DNA PCR. Start anti-retroviral immediately with Kaletra, Etravirine and Epivir, which can be given via tube. Await on COVID test results and go from there. Job ID: [id number] [facility]
[2020-03-03] MEDS: methylPREDNISolone Sod Succ 40 MG VIAL IVP SCH ×5 (00:27→23:27)
[2020-03-03] MEDS: SULFAMETHOXAZOLE IVPB SCH ×4 (03:31→20:16)
[2020-03-03] MEDS: DEXTROSE 5% IVPB SCH ×4 (03:31→20:16)
[2020-03-03] MEDS: TRIMETHOPRIM IVPB SCH ×4 (03:31→20:16)
[2020-03-03] MEDS: WATER IVPB SCH ×4 (03:31→20:16)
[2020-03-03] MEDS: Sodium Chloride 0.9% 1,000 ML IV SCH ×2 (03:33→11:04)
[2020-03-03 04:15] LABS: ALT (SGPT) 29 U/L (8-55); AST (SGOT) 86 U/L (5-34); Albumin 2.2 g/dL (3.5-5.0); Alkaline Phosphatase 51 U/L (40-110); Anion Gap 13 mmol/L (10-20); BUN (Urea Nitrogen) 16 mg/dL (8.9-20.6); Bilirubin, Total 0.6 mg/dL (0.2-1.2); Calc. Creatinine Clearance 101 mL/min (70-130); Calcium 7.4 mg/dL (7.8-10.44); Carbon Dioxide 20 mmol/L (22-29); Chloride 101 mmol/L (98-107); Estimated GFR-MDRD Greater than 90; Globulin 4.4 g/dL (2.4-3.5); Glucose 149 mg/dL (70-105); Iron 27 ug/dL (65-175); Iron Binding Capacity, Total 104 mcg/dL (261-462); Potassium 4.2 mmol/L (3.5-5.1); Protein, Total 6.6 g/dL (6.0-8.3); Sodium 130 mmol/L (136-145)
[2020-03-03] MEDS: Sterile Water 10 ML VIAL FS PRN ×2 (05:00→21:21)
[2020-03-03] MEDS: Vecuronium 10 MG VIAL IVP PRN ×2 (05:00→21:21)
[2020-03-03 05:34] LABS: Ferritin 6013.86 ng/mL (22-322)
[2020-03-03 06:41] LABS: Band 36 % (5-11); Hemoglobin 11.3 g/dL (14.0-18.0); Lymphocytes 4 % (21-51); MDiff Complete? YES; Mean Corpuscular HGB CONC 32.2 g/dL (32.0-36.0); Mean Corpuscular Hemoglobin 30.6 pg (27.0-31.0); Mean Corpuscular Volume 94.8 fL (78.0-98.0); Mean Platelet Volume 8.8 fL (7.4-10.4); Monocytes 4 % (0-10); Neutrophil 56 % (42-75); Platelet Count 190 thou/uL (130-400); Platelet Morphology Comment Appears Adequate; RBC Distribution Width 11.9 % (11.5-14.5); Red Blood Cell (RBC) Count 3.71 mill/uL (4.70-6.10); White Blood Cell (WBC) Count 4.5 thou/uL (4.8-10.8)
--- NOTE | 2020-03-03 06:50 | PDOC.FM ---
- Subjective Subjective: Intubated, sedated and paralysed. Able to squeeze fingers, shake head and wiggle toes this morning. RR and FiO2 turned down this morning and he seems to be doing well. Had decreased urine output, currently getting a 1L NS bolus. - Objective MAR Reviewed: Yes Vital Signs & Weight: Vital Signs (12 hours) Temp Pulse Resp BP Pulse Ox 03/03/20 06:00 25 H 03/03/20 04:00 97.2 F L 25 H 03/03/20 03:17 90 94/66 03/03/20 02:00 25 H 03/03/20 00:00 97.0 F L 25 H 03/02/20 22:00 25 H 03/02/20 21:58 100 03/02/20 21:55 92 82/64 L 03/02/20 21:53 94 82/64 L 03/02/20 20:00 96.4 F L 99 Weight Weight 59 kg Most Recent Monitor Data Heart Rate from ECG 89 NIBP 80/64 NIBP BP-Mean 69 Respiration from ECG 25 SpO2 99 I&O: 03/01/20 03/02/20 03/03/20 06:59 06:59 06:59 Intake Total 3615 Output Total 955 Balance 2660 Result Diagrams: 03/03/20 06:05 03/03/20 03:41 Phys Exam - Physical Examination Intubated and sedated Coarse breath sounds bilaterally Cardiovascular: RRR Gastrointestinal: soft Musculoskeletal: no edema, pulses present Skin: normal turgor Dx/Plan - Plan Plan: Sepsis 2/2 Acute hypoxic respiratory failure 2/2 pneumonia. PCP vs bacterial - COVID & Flu neg. - Intubated 5/ at [facility] ED - CXR: multifocal pna, LLL infiltrate - Continue Azithromycin 500mg, Ceftriaxone 2g, Fluconazole with addition of Bactrim and steroids to cover PCP. Diflucan to cover for esophageal candidiasis - Dr Covington consulted, apprec recs - Pulmonology consulted - Multiple labs pending HIV - Restarted antivirals this admission - Follows with Dr Covington, consulted, apprec recs - CD4 and viral load pending Normocytic Anemia - Anemia of chronic disease vs Folic acid def. - Will replace folic acid SC until able to take PO - Peripheral smear pending Transaminitis - AST/ALT ratio >2 suggest alcohol. Hyponatremia - 130 - Obtained urine studies. Ordered TSH and Cortisol Hx of seizures - Per chart review was on Carbamazepime. Only takes while in longterm as he cannot afford it. Hx of drug abuse - UDS positive for cocaine Hx of Incarceration DVT ppx: Lovenox GI ppx: Famotidine Addendum - Attending - Attending Attestation Date/Time: 03/03/20 2247 I personally evaluated the patient and discussed the management with Dr. Alexander I agree with the History, Examination, Assessment and Plan documented above with any addition or exceptions noted below- Intubated. Afebrile VSS. A/P: 1) Acute hypoxic resp failure secondary to pneumonia- continue vent support; Appreciate ID and pulmonary assistance. 2) Hyponatremia- continue to monitor and continue IVF. 3) HIV - restarted on antiretrovirals; labs pending for CD4 and viral load.
[2020-03-03 07:14] LABS: Hemoglobin A1c 6.4 % (4.0-6.0)
[2020-03-03 07:31] LABS: Actual Bicarbonate (HCO3a) 19.6 mEq/L (22-28); Base Excess (BEa) -0.9 mEq/L (-2.0 to +3.0); Calcium, Ionized 1.08 mmol/L (1.12-1.30); Carboxyhemoglobin (COHb) 0.8 gm% (0.0-3.0); Hemoglobin (Hb) 12.2 g/dL (14.0-18.0); O2 Tension (PaO2) 60.6 mmHg (80.0-100.0); Potassium - ABG Lab 4.03 mmol/L (3.70-5.30)
[2020-03-03 07:33] LABS: CO2 Tension 22.2 mmHg (35.0-45.0); Puncture Site LRA; pH, Arterial 7.56 (7.35-7.45)
[2020-03-03] MEDS ORDERED: Sodium Chloride 0.9% 1,000 ML IV SCH (08:00)
--- NOTE | 2020-03-03 08:37 | PRG ---
DATE OF SERVICE: 03/03/2020 Thirty-five minutes critical time. SUBJECTIVE: The patient remains intubated on mechanical ventilation. He is oxygenating much better than he was last night. OBJECTIVE: VITAL SIGNS: Temperature 96.5, pulse 87, blood pressure 82/67. He is currently on fentanyl drip. He will follow commands for me. His intake for 24 hours has been 3654, output 955. Weight 130 pounds. HEENT: Unremarkable. NECK: No adenopathy or JVD. LUNGS: Coarse breath sounds. CARDIOVASCULAR: S1 and S2, regular. ABDOMEN: Soft, nontender, and nondistended. EXTREMITIES: No clubbing, cyanosis, or edema. LABORATORY DATA: Sodium 130, potassium 4.2, chloride 101, CO2 of 20, BUN 16, creatinine 0.7, glucose 149, albumin is 2.2. PH 7.56, pCO2 of 22, PO2 of 60, on bilevel ventilation, high pressure 30, low pressure 10, FiO2 of 40%. White blood cell count 4.5, hematocrit 35.1, and platelet count 190, with 56% neutrophils, 36% bands. Chest x-ray shows bilateral infiltrates. His COVID-19 test was negative. ASSESSMENT: 1. Acute hypoxic respiratory failure, requiring mechanical ventilation. 2. Bilateral pneumonia - likely pneumocystis, given demographics. 3. Severe protein-calorie malnutrition with hypoalbuminemia. PLAN: 1. I have decreased his ventilatory support. 2. Continue the antibiotics, antivirals, and antifungals. 3. 1 L bolus IV fluid. 4. Continue steroids, given the degree of hypoxemia. 5. Initiate enteral tube feeds per Nutritional recommendations. 6. Await results of his CD4 count and HIV viral load. Job ID: [id number]
--- NOTE | 2020-03-03 08:43 | RAD ---
PORTABLE CHEST: COMPARISON: 07/08/2019 study. HISTORY: Pneumonia. FINDINGS: Endotracheal and NG tubes are in satisfactory. Bilateral predominantly basilar infiltrates are seen. IMPRESSION: Bibasilar infiltrative lung change. POS: CHIQUITA
[2020-03-03] MEDS: Folic Acid 0.4 MG in Admixture Fee 1 EACH SC SCH (09:22)
[2020-03-03] MEDS: Lopinavir/Ritonavir 80 MG/20 MG per ML Oral Solution PER TUBE SCH ×2 (09:23→20:16)
[2020-03-03] MEDS: Famotidine/PF 20 mg/2ml Vial SLOW IVP SCH ×2 (09:23→20:16)
[2020-03-03] MEDS ORDERED: Prevnar 13-Val Conj/PF 0.5 ML SYRINGE IM ONE (15:30)
[2020-03-03] MEDS: Azithromycin 500 MG in Sodium Chloride 0.9% 250 ML 250 ML IVPB SCH (16:01)
--- NOTE | 2020-03-03 16:15 | PRG ---
DATE OF SERVICE: 03/03/2020 SUBJECTIVE: The patient is a wide awake. He follows commands. Does not seem to be in any distress. His O2 saturations are good and 99% on 40% FiO2, low PEEP. PHYSICAL EXAMINATION: HEENT: Ocular movements are conjugate. Pupils are 1 mm and reactive. Orotracheal intubation. LUNGS: With somewhat coarse breath sounds particularly at the bases. No wheezing. HEART: S1 and S2. Regular rate. ABDOMEN: Soft, not distended or tender. Moves all extremities. No edema. IMAGING STUDIES: Repeat chest x-ray with bibasilar infiltrates noted. LABORATORY DATA: We have sodium 130, creatinine 0.79. Ferritin is 6000. AST 86, albumin 2.2. Folate is low at 4.4. Hemoglobin A1c 6.4. White cell count 4.5, hemoglobin 11.3. Microbiology with serum cryptococcal antigen, which is negative. Other assays are pending. MEDICATIONS: The patient is on: 1. Antiretroviral therapy. 2. Bactrim. 3. Medrol. 4. Diflucan. COVID test was negative. He has a low pretest likelihood of having COVID infection. ASSESSMENT AND DISCUSSION: Longstanding human immunodeficiency virus infection with poor adherence to antiretroviral therapy and advanced immunosuppression, now with bilateral pneumonia, likely Pneumocystis, [place] esophagitis is likely as well. The patient will continue with this current therapy and hopefully be able to be extubated soon. Job ID: [id number]
[2020-03-03] MEDS: cefTRIAXone\\ROCEPHIN 2 GM in Sodium Chloride 0.9% 100 ML IVPB SCH (17:08)
[2020-03-03] MEDS: Fluconazole In NaCl,Iso-Osm 100 MG in Admixture Fee 2 EACH IVPB SCH (18:30)
[2020-03-04 04:07] LABS: #Lymphocytes 0.7 thou/uL (1.20-3.40); #Monocytes 0.3 thou/uL (0.11-0.59); #Neutrophils 4.7 thou/uL (1.40-6.50); %Basophils 0.3 % (0.0-1.0); %Eosinophils 0.1 % (0.0-10.0); %Lymphocytes 11.4 % (21.0-51.0); %Monocytes 5.3 % (0.0-10.0); %Neutrophils 82.9 % (42.0-75.0); Hemoglobin 10.6 g/dL (14.0-18.0); Mean Corpuscular HGB CONC 31.6 g/dL (32.0-36.0); Mean Corpuscular Hemoglobin 30.9 pg (27.0-31.0); Mean Corpuscular Volume 97.9 fL (78.0-98.0); Mean Platelet Volume 9.9 fL (7.4-10.4); Platelet Count 165 thou/uL (130-400); RBC Distribution Width 12.5 % (11.5-14.5); Red Blood Cell (RBC) Count 3.44 mill/uL (4.70-6.10); White Blood Cell (WBC) Count 5.7 thou/uL (4.8-10.8)
[2020-03-04] MEDS: SULFAMETHOXAZOLE IVPB SCH ×4 (04:12→20:23)
[2020-03-04] MEDS: TRIMETHOPRIM IVPB SCH ×4 (04:12→20:23)
[2020-03-04] MEDS: DEXTROSE 5% IVPB SCH ×4 (04:12→20:23)
[2020-03-04] MEDS: WATER IVPB SCH ×4 (04:12→20:23)
[2020-03-04] MEDS: methylPREDNISolone Sod Succ 40 MG VIAL IVP SCH ×3 (05:16→16:58)
[2020-03-04] MEDS: Sodium Chloride 0.9% 1,000 ML IV SCH (06:59)
[2020-03-04 07:09] LABS: Actual Bicarbonate (HCO3a) 20.9 mEq/L (22-28); Base Excess (BEa) -3.3 mEq/L (-2.0 to +3.0); CO2 Tension 34.8 mmHg (35.0-45.0); Calcium, Ionized 1.12 mmol/L (1.12-1.30); Carboxyhemoglobin (COHb) 0.2 gm% (0.0-3.0); Hemoglobin (Hb) 10.9 g/dL (14.0-18.0); O2 Tension (PaO2) 109.5 mmHg (80.0-100.0); Potassium - ABG Lab 4.01 mmol/L (3.70-5.30)
[2020-03-04 07:13] LABS: Puncture Site RRA
--- NOTE | 2020-03-04 07:14 | PDOC.FM ---
- Subjective Subjective: Intubated and lightly sedated. Able to squeeze bilateral hands and move feet. Denies pain. - Objective MAR Reviewed: Yes Vital Signs & Weight: Vital Signs (12 hours) Temp Pulse Resp Pulse Ox 03/04/20 06:59 72 03/04/20 06:00 16 03/04/20 04:00 97.3 F L 16 03/04/20 02:51 69 03/04/20 02:00 16 03/04/20 00:32 71 03/04/20 00:00 97.2 F L 16 03/03/20 22:10 81 03/03/20 22:00 16 03/03/20 20:00 96.4 F L 19 97 Weight Admit Weight 56.7 kg Weight 64 kg Most Recent Monitor Data Heart Rate from ECG 70 NIBP 90/64 NIBP BP-Mean 72 Respiration from ECG 17 SpO2 100 I&O: 03/03/20 03/04/20 03/05/20 06:59 06:59 06:59 Intake Total 3654.2 6192 Output Total 955 1260 Balance 2699.2 4932 Result Diagrams: 03/04/20 03:44 03/03/20 03:41 Phys Exam - Physical Examination Intubated Neck: supple Respiratory: clear to auscultation bilateral Cardiovascular: RRR Gastrointestinal: positive bowel sounds slightly distended Musculoskeletal: no edema, pulses present Skin: no rash Dx/Plan - Plan Plan: Sepsis 2/2 Acute hypoxic respiratory failure 2/2 pneumonia. PCP vs bacterial - COVID & Flu neg. - Intubated 03/02 - CXR: multifocal pna, LLL infiltrate - Continue Azithromycin 500mg, Ceftriaxone 2g, Fluconazole, Bactrim, steroids, and Diflucan to cover for esophageal candidiasis - Dr Covington consulted, apprec recs - Pulmonology consulted - Multiple labs pending. CMV neg HIV - Restarted antivirals this admission - Follows with Dr Covington, consulted, apprec recs - CD4 and viral load pending Normocytic Anemia - Anemia of chronic disease vs Folic acid def. - Will replace folic acid SC until able to take PO Transaminitis - AST/ALT ratio >2 suggest alcohol. Hyponatremia, stable Hx of seizures - Per chart review was on Carbamazepime. Only takes while in prison as he cannot afford it. Hx of drug abuse - UDS positive for cocaine Hx of Incarceration DVT ppx: Lovenox GI ppx: Famotidine Nutrition: OG feeds Addendum - Attending - Attending Attestation Date/Time: 03/04/20 5178 I personally evaluated the patient and discussed the management with Dr. Alexander I agree with the History, Examination, Assessment and Plan documented above with any addition or exceptions noted below- Patient intubated on CPAP. Afebrile VSS. A/P: 1) Acute respiratory failure secondary to PNA- continue to wean as tolerated as per pulmonary. 2) Pneumonia likely secondary to PCP- continue current abx. 3) HIV- continue current antiretrovirals.
--- NOTE | 2020-03-04 08:05 | RAD ---
Exam: Chest one view HISTORY:Pneumonia Comparison: 03/03/2020 FINDINGS: Lines and tubes: Stable endotracheal and nasogastric tube Cardiac silhouette:Mild enlarged cardiac silhouette. Aorta: Unremarkable Pulmonary vessels: Normal Costophrenic angles: Bilateral pleural effusions, left greater than right. LUNGS: Scattered interstitial and alveolar opacities, greatest in the left lung base. Pneumothorax: None Osseous abnormalities: None IMPRESSION: No significant interval change.
[2020-03-04] MEDS: Folic Acid 0.4 MG in Admixture Fee 1 EACH SC SCH (08:55)
[2020-03-04] MEDS: Famotidine/PF 20 mg/2ml Vial SLOW IVP SCH ×2 (08:55→20:24)
[2020-03-04] MEDS ORDERED: Polyethylene Glycol 3350 17 GM Packet PER TUBE SCH (09:00)
[2020-03-04] MEDS: Lopinavir/Ritonavir 80 MG/20 MG per ML Oral Solution PER TUBE SCH ×2 (09:02→20:24)
--- NOTE | 2020-03-04 09:03 | PRG ---
DATE OF SERVICE: 03/04/2020 This is 35 minutes of critical time. SUBJECTIVE: The patient remains intubated on mechanical ventilation. He will wake up and follow commands for me. OBJECTIVE: VITAL SIGNS: His temperature is 97.3, pulse 81, blood pressure 95/67, O2 saturation 100%. A 24-hour intake 6192, output 1260. HEENT: Unremarkable. NECK: No adenopathy or JVD. LUNGS: Clear anteriorly. CARDIAC: S1 and S2. Regular. ABDOMEN: Soft. EXTREMITIES: No edema. LABORATORY DATA: ABG; pH 7.40, pCO2 of 34, pO2 of 109 on bilevel rate 16, FiO2 of 40%, high pressure 26, low pressure 10. White blood cell count 5.7, hematocrit 33.7, and platelet count 165. Sodium 130, potassium 4.2. Chest x-ray continues to show bilateral lower lobe infiltrates. ASSESSMENT: 1. Human immunodeficiency virus with pneumonia. 2. Acute hypoxic respiratory failure, requiring mechanical ventilation. PLAN: 1. I will go ahead and stop his IV fluids since he is getting plenty fluid in the amount of tube feeds and his antibiotics. 2. Decrease steroid dose in half. 3. Spontaneous breathing trial. 4. Limit sedation. 5. Consider extubating if passed a spontaneous breathing trial. Job ID: [id number]
[2020-03-04] MEDS: Fluconazole In NaCl,Iso-Osm 100 MG in Admixture Fee 2 EACH IVPB SCH (16:42)
[2020-03-04] MEDS: cefTRIAXone\\ROCEPHIN 2 GM in Sodium Chloride 0.9% 100 ML IVPB SCH (16:43)
[2020-03-04] MEDS: Azithromycin 500 MG in Sodium Chloride 0.9% 250 ML 250 ML IVPB SCH (16:44)
[2020-03-04 17:14] LABS: %CD4 (Helper/Inducer) 10.7 % (30.8-58.5); Absolute CD4 21 /uL (359-1519); Lymphocytes/Gated Cell Count 0.2 x10E3/uL (0.7-3.1); Total Lymphocyte 8 % (Not Estab.); WBC Total Count 2.5 x10E3/uL (3.4-10.8)
[2020-03-05] MEDS: methylPREDNISolone Sod Succ 40 MG VIAL IVP SCH ×2 (00:01→05:40)
[2020-03-05] MEDS: SULFAMETHOXAZOLE IVPB SCH (03:22)
[2020-03-05] MEDS: TRIMETHOPRIM IVPB SCH (03:22)
[2020-03-05] MEDS: WATER IVPB SCH (03:22)
[2020-03-05] MEDS: DEXTROSE 5% IVPB SCH (03:22)
[2020-03-05 04:04] LABS: #Lymphocytes 0.8 thou/uL (1.20-3.40); #Monocytes 0.3 thou/uL (0.11-0.59); #Neutrophils 5.8 thou/uL (1.40-6.50); %Basophils 0.2 % (0.0-1.0); %Lymphocytes 12.2 % (21.0-51.0); %Monocytes 3.7 % (0.0-10.0); %Neutrophils 83.9 % (42.0-75.0); Hemoglobin 9.8 g/dL (14.0-18.0); Mean Corpuscular HGB CONC 31.8 g/dL (32.0-36.0); Mean Corpuscular Hemoglobin 30.1 pg (27.0-31.0); Mean Corpuscular Volume 94.5 fL (78.0-98.0); Mean Platelet Volume 9.1 fL (7.4-10.4); Platelet Count 196 thou/uL (130-400); RBC Distribution Width 12.4 % (11.5-14.5); Red Blood Cell (RBC) Count 3.26 mill/uL (4.70-6.10); White Blood Cell (WBC) Count 6.3 thou/uL (4.8-10.8)
[2020-03-05 04:07] LABS: Anion Gap 13 mmol/L (10-20); BUN (Urea Nitrogen) 15 mg/dL (8.9-20.6); Calc. Creatinine Clearance 118 mL/min (70-130); Calcium 7.4 mg/dL (7.8-10.44); Carbon Dioxide 20 mmol/L (22-29); Chloride 100 mmol/L (98-107); Estimated GFR-MDRD Greater than 90; Glucose 117 mg/dL (70-105); Potassium 3.6 mmol/L (3.5-5.1); Sodium 129 mmol/L (136-145)
--- NOTE | 2020-03-05 06:44 | PDOC.FM ---
- Subjective Subjective: Extubated yesterday. - Objective MAR Reviewed: Yes Vital Signs & Weight: Vital Signs (12 hours) Temp Pulse Ox 03/05/20 04:00 96.8 F L 03/05/20 00:00 96.3 F L 03/04/20 20:00 96.9 F L 100 Weight Admit Weight 56.7 kg Weight 63.6 kg Most Recent Monitor Data Heart Rate from ECG 62 NIBP 90/58 NIBP BP-Mean 68 Respiration from ECG 21 SpO2 99 I&O: 03/03/20 03/04/20 03/05/20 06:59 06:59 06:59 Intake Total 3654.2 6192 3910 Output Total 955 1260 2265 Balance 2699.2 4932 1645 Result Diagrams: 03/05/20 03:20 03/05/20 03:20 Phys Exam - Physical Examination Constitutional: NAD HEENT: moist MMs Neck: supple b/l rhonchi Cardiovascular: RRR, no significant murmur Gastrointestinal: soft, non-tender Musculoskeletal: no edema Neurological: non-focal, moves all 4 limbs Psychiatric: normal affect, A&O x 3 Skin: no rash Dx/Plan - Plan Plan: Sepsis 2/2 Acute hypoxic respiratory failure 2/2 pneumonia. PCP vs bacterial - COVID & Flu neg. - Intubated 03/02, Extubated 03/04 - Continue Azithromycin 500mg, Ceftriaxone 2g, Fluconazole, Bactrim, steroids, and Diflucan to cover for esophageal candidiasis - Dr Covington consulted, apprec recs - Pulmonology consulted - Multiple labs pending. CMV neg - Transfer to [facility]. D/c raudel HIV - Restarted antivirals this admission - Follows with Dr Covington, consulted, apprec recs - CD4 21. Viral load pending Severely immunosuppressed Normocytic Anemia - Continue Folic acid replacement Transaminitis Hyponatremia, stable Hx of seizures - Per chart review was on Carbamazepime. Only takes while in [facility] as he cannot afford it. Hx of drug abuse - UDS positive for cocaine Hx of Incarceration DVT ppx: Lovenox GI ppx: Famotidine Addendum - Attending - Attending Attestation Date/Time: 03/05/20 3153 I personally evaluated the patient and discussed the management with Dr. Alexander I agree with the History, Examination, Assessment and Plan documented above with any addition or exceptions noted below - Patient siting up in chair. Denies any SOB. Afebrile VSS. A/P: 1) Acute respiratory failure to PNA suspect Pneumocystis - resolved. Transfer to floor as per pulmonary. 2) Pneumonia most likely secondary to PCP - continue current abx. Plan for Bactrim x 21 days. 3) HIV (+)- continue antiretrovirals. CD4 count=21.
--- NOTE | 2020-03-05 07:55 | RAD ---
Exam: Chest one view HISTORY:Pneumonia. Suspected COVID patient. Comparison: 03/04/2020 FINDINGS: Lines and tubes: Interval removal of endotracheal and nasogastric tube. Cardiac silhouette:Mild enlarged cardiac silhouette Aorta: Unremarkable Pulmonary vessels: Normal Costophrenic angles: Small left-sided pleural effusion LUNGS: Improved aeration of the lung parenchyma. Persistent opacities in the lung bases do remain. Pneumothorax: None Osseous abnormalities: None IMPRESSION: 1. Interval removal of endotracheal and nasogastric tube. 2. Improved aeration of the lung parenchyma. Residual opacities in the lung bases do remain.
[2020-03-05] MEDS ORDERED: Polyethylene Glycol 3350 17 GM Packet PO PRN (08:04)
[2020-03-05] MEDS: predniSONE 20 MG TAB PO SCH (08:10)
[2020-03-05] MEDS: Sulfameth/Trimethoprim DS 800-160mg TAB PO SCH ×4 (08:11→20:45)
[2020-03-05] MEDS: Enoxaparin Sodium 40 MG/0.4 ML SYRINGE SC SCH (08:11)
[2020-03-05] MEDS: Famotidine 20 MG TAB PO SCH ×3 (08:11→20:45)
[2020-03-05] MEDS: Folic Acid 0.4 MG in Admixture Fee 1 EACH SC SCH (08:19)
[2020-03-05] MEDS: Lopinavir/Ritonavir 80 MG/20 MG per ML Oral Solution PER TUBE SCH ×2 (08:39→20:45)
[2020-03-05] MEDS: Folic Acid 1 MG TAB PO SCH (08:40)
--- NOTE | 2020-03-05 08:43 | PRG ---
DATE OF SERVICE: 03/05/2020 SUBJECTIVE: The patient remains in the ICU. He was extubated yesterday. He feels much better. He is able to verbalize without limitation. OBJECTIVE: VITAL SIGNS: Temperature 96.8, pulse 62, blood pressure 90/58, and O2 saturation 99% on room air. HEENT: Unremarkable. NECK: No adenopathy or JVD. LUNGS: He has few crackles in the bases. CARDIAC: S1, S2. Regular. ABDOMEN: Soft. EXTREMITIES: No edema. LABORATORY DATA: White blood cell count 6.3, hematocrit 30.8, and platelet count 196. Sodium 129, potassium 3.6, chloride 100, CO2 of 20, BUN 15, creatinine 0.7, glucose 117. His CD4 count was 21. His HIV viral load is pending. ASSESSMENT: 1. Likely Pneumocystis pneumonia. 2. Human immunodeficiency virus, noncompliant with antiviral medications. 3. Status post respiratory failure, requiring mechanical ventilation. 4. Severe protein-calorie malnutrition. PLAN: 1. The patient can be transferred to the medical floor. 2. He will begin physical therapy. 3. I will switch his Bactrim over to oral medication. 4. Switch steroids over to oral medication. 5. Continue antiretrovirals. 6. Discontinue Zithromax. Continue ceftriaxone for few more days. Job ID: [id number]
[2020-03-05] MEDS ORDERED: Fluconazole 100 MG TAB PO SCH (10:30)
[2020-03-05] MEDS ORDERED: Ondansetron ODT 4 MG TAB PO PRN (12:26)
[2020-03-05] MEDS ORDERED: Ondansetron HCl/PF 4 MG in Sodium Chloride 0.9% 50 ML IVPB PRN (12:26)
--- NOTE | 2020-03-05 17:14 | PRG ---
DATE OF SERVICE: 03/05/2020 SUBJECTIVE: The patient has been transferred to the floor. He is awake, oriented. Denies any shortness of breath. Little cough. No abdominal pain. Voiding without difficulty. OBJECTIVE: VITAL SIGNS: Normal O2 saturations are 94 on room air. GENERAL: Awake, alert, and oriented. LUNGS: Clear. HEART: S1 and S2. Regular rate. ABDOMEN: Soft, not distended. EXTREMITIES: Moves all extremities equally. LABORATORY DATA: White cell count 6.3, hemoglobin 9.8, platelets 196, and 83% neutrophils. A pH of 7.4, pCO2 of 34, and pO2 of 109. Sodium 129 and creatinine 0.76. Cortisol 14 and CD4 is 21. Repeat chest x-ray with removal of ET tube in improved aeration. Lung parenchyma. ASSESSMENT AND DISCUSSION: Longstanding HIV infection with poor adherence to antiretroviral therapy, advanced immunosuppression, bilateral pneumonia, likely Pneumocystis, [place] esophagitis, likely as well. The patient has improved and been extubated back in the floor. He has been switched to oral regimen for the most part, a few more days of prednisone and then stop it. Discharge planning on Bactrim for a total of 21 days, probably the dosing would be like two DS tablets three times daily and then transition to his antiretroviral therapy, which will be probably Biktarvy in the outpatient setting and continue Diflucan in the outpatient setting for another 2 weeks. Follow up in the clinic in about 1 to 2 weeks. Job ID: [id number]
[2020-03-05] MEDS: cefTRIAXone\\ROCEPHIN 2 GM in Sodium Chloride 0.9% 100 ML IVPB SCH (17:38)
[2020-03-05 21:36] LABS: CMV log 10 Quant 3.785 (.)
[2020-03-06] MEDS: Sulfameth/Trimethoprim DS 800-160mg TAB PO SCH ×4 (06:03→17:51)
[2020-03-06 06:12] LABS: Anion Gap 11 mmol/L (10-20); BUN (Urea Nitrogen) 15 mg/dL (8.9-20.6); Calc. Creatinine Clearance 129 mL/min (70-130); Calcium 7.8 mg/dL (7.8-10.44); Carbon Dioxide 23 mmol/L (22-29); Chloride 102 mmol/L (98-107); Estimated GFR-MDRD Greater than 90; Glucose 103 mg/dL (70-105); Sodium 132 mmol/L (136-145)
--- NOTE | 2020-03-06 07:03 | PDOC.FM ---
- Subjective Subjective: Feeling better this morning. Complaint that vision is blurry. Does not wear glasses. Reports vomiting for week prior to admission, no nausea. He is being treated for candidiasis esophagitis. Says he is eligible for HIV meds through the assistance program but has only picked up one prescription back in Jul. Denies SOB, chest pain. Reports feeling weak. - Objective MAR Reviewed: Yes Vital Signs & Weight: Vital Signs (12 hours) Temp Pulse Resp BP Pulse Ox 03/05/20 20:00 97.5 F L 67 20 98/64 95 Weight Admit Weight 56.7 kg Weight 63.5 kg Most Recent Monitor Data Heart Rate from ECG 66 NIBP 94/64 NIBP BP-Mean 74 Respiration from ECG 24 SpO2 99 I&O: 03/05/20 03/06/20 03/07/20 06:59 06:59 06:59 Intake Total 3910 120 Output Total 2265 240 Balance 1645 -120 Result Diagrams: 03/05/20 03:20 03/06/20 05:28 Phys Exam - Physical Examination Constitutional: NAD HEENT: moist MMs Neck: supple Respiratory: clear to auscultation bilateral Cardiovascular: RRR, no significant murmur Gastrointestinal: soft, non-tender Musculoskeletal: no edema Neurological: moves all 4 limbs Psychiatric: normal affect, A&O x 3 Skin: no rash Dx/Plan - Plan Plan: Sepsis 2/2 Acute hypoxic respiratory failure 2/2 likely PCP pneumonia - COVID & Flu neg. - Intubated 5/4, Extubated 5/6 - Continue Ceftriaxone 2g, Fluconazole for total of 2 weeks to cover for esophageal candidiasis and Bactrim for 21 days to cover for PCP. - Continue Steroids for a couple more days - Dr Covington consulted, apprec recs - Pulmonology consulted HIV - Restarted antivirals this admission, transition back to Biktarvy outpt - Follows with Dr Covington, consulted, apprec recs - CD4 21. Viral load pending Severely immunosuppressed Normocytic Anemia - Continue Folic acid replacement Transaminitis Hyponatremia, stable Hx of seizures - Per chart review was on Carbamazepime. Only takes while in [facility] as he cannot afford it. Hx of drug abuse - UDS positive for cocaine Hx of Incarceration DVT ppx: Lovenox GI ppx: Famotidine Addendum - Attending - Attending Attestation Date/Time: 03/06/20 7282 I personally evaluated the patient and discussed the management with Dr. Alexander. I agree with the History, Examination, Assessment and Plan documented above with any addition or exceptions noted below - Patient without complaints. States that SOB is better. Afebrile VSS A/P: 1) Acute resp failure- resolved; 2 ) Presumed PCP pneumonia - continue Bactrim x 21 days. 3) HIV (+)- continue antiretrovirals and antifungals. 4) Deconditioning- PT consulted.
[2020-03-06] MEDS: Enoxaparin Sodium 40 MG/0.4 ML SYRINGE SC SCH (08:30)
[2020-03-06] MEDS: Folic Acid 1 MG TAB PO SCH (08:31)
[2020-03-06] MEDS: predniSONE 20 MG TAB PO SCH (08:31)
[2020-03-06] MEDS: Famotidine 20 MG TAB PO SCH ×2 (08:31→21:56)
[2020-03-06] MEDS: Fluconazole 100 MG TAB PO SCH (08:31)
--- NOTE | 2020-03-06 08:50 | PRG ---
DATE OF SERVICE: 03/06/2020 SUBJECTIVE: The patient is doing reasonably well. No acute complaints. OBJECTIVE: VITAL SIGNS: Temperature 97.5, pulse 67, respirations 20, and O2 saturation 95% on room air. HEENT: Unremarkable. NECK: No adenopathy or JVD. LUNGS: Clear without wheezing or rhonchi. CARDIAC: S1 and S2. Regular. ABDOMEN: Soft. EXTREMITIES: No edema. LABORATORY DATA: Sodium 132, potassium 4, chloride 102, CO2 of 23, BUN 15, creatinine 0.7, and glucose 103. ASSESSMENT: Human immunodeficiency virus with presumed Pneumocystis pneumonia. PLAN: As per Dr. Covington's note yesterday, the patient will need total of 21 days of treatment for the Pneumocystis. He is concurrently getting treatment for fungal infections. At this point, it is mainly a rehabilitative issue. No further recommendations from Pulmonary standpoint available as needed. Job ID: [id number]
[2020-03-06] MEDS: Lopinavir/Ritonavir 80 MG/20 MG per ML Oral Solution PER TUBE SCH ×2 (09:15→21:56)
--- NOTE | 2020-03-06 15:33 | PRG ---
DATE OF SERVICE: 03/06/2020 SUBJECTIVE: Still about the same as yesterday. Not eating much. Coughing intermittently. No chest pain. No abdominal pain. Has not had a bowel movement. Voiding without difficulty. Able to walk, he went to the bathroom and back and walked around the [place]. OBJECTIVE: VITAL SIGNS: He has been afebrile, BP 99/63, O2 saturations are 95 on room air. GENERAL: Awake, alert, oriented, little bit of periorbital edema. NECK: No jugular vein distention. LUNGS: A few crackles but not many. No wheezing. HEART: S1 and S2, regular rate. ABDOMEN: Soft, not distended or tender. EXTREMITIES: Moves extremities equally. No edema. LABORATORY DATA: Sodium 132, creatinine 0.69. White cell count 6.3, hemoglobin 9.8. The CMV-DNA PCR 6090. Fungitell was 88. Repeat chest x-ray with improvement in the areas of opacification. ASSESSMENT AND DISCUSSION: Longstanding human immunodeficiency virus infection with advanced immunosuppression, poor adherence to antiretroviral therapy, diffuse pneumonitis likely Pneumocystis with improvement. 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 His eyesight is okay. His odynophagia has improved with Diflucan. The plan is to continue Bactrim for a total of 21 days. The end date of therapy will be March 23. The dose would be double-strength Bactrim 2 tablets three times daily. After that, then suppressive therapy with one double-strength tablet Monday, Monday, and Fridays. We will go ahead and start Valcyte 900 mg b.i.d. induction phase for 2 weeks, after that 450 b.i.d. from then on until there is recovery of CD4 cell count. The patient lives in [place] sometimes with a friend, sometimes in his mother's home and does not have a steady housing, so his social circumstances are going to be a problem. He also has demonstrated lack of adherence to visits and antiretroviral therapy in the past. As his therapy becomes more complicated and his clinical status deteriorates, the likelihood of a good outcome diminishes. Job ID: [id number]
[2020-03-06] MEDS: cefTRIAXone\\ROCEPHIN 2 GM in Sodium Chloride 0.9% 100 ML IVPB SCH (17:51)
[2020-03-07] MEDS: Sulfameth/Trimethoprim DS 800-160mg TAB PO SCH ×5 (01:04→23:34)
--- NOTE | 2020-03-07 06:33 | PDOC.FM ---
- Subjective Subjective: Doing well today. He is still vomiting, reports nausea is not really a concern. He has been working with PT and OT. He his hopeful he will be able to get a bed at rehab on Monday. Reported yesterday that he has been "living on the streets. " - Objective MAR Reviewed: Yes Vital Signs & Weight: Vital Signs (12 hours) Temp Pulse Resp BP Pulse Ox 03/06/20 20:00 96 03/06/20 19:40 97.9 F 72 18 106/65 96 Weight Admit Weight 56.7 kg Weight 64 kg Most Recent Monitor Data Heart Rate from ECG 66 NIBP 94/64 NIBP BP-Mean 74 Respiration from ECG 24 SpO2 99 I&O: 03/05/20 03/06/20 03/07/20 06:59 06:59 06:59 Intake Total 3910 120 820 Output Total 2265 240 500 Balance 1645 -120 320 Result Diagrams: 03/05/20 03:20 03/06/20 05:28 Phys Exam - Physical Examination Constitutional: NAD HEENT: moist MMs Neck: supple Respiratory: no wheezing, clear to auscultation bilateral Cardiovascular: RRR, no significant murmur Gastrointestinal: soft, non-tender Musculoskeletal: no edema Neurological: moves all 4 limbs Psychiatric: normal affect, A&O x 3 Skin: no rash Dx/Plan - Plan Plan: Sepsis 2/2 Acute hypoxic respiratory failure 2/2 likely PCP pneumonia - Continue Ceftriaxone 2g, Fluconazole for total of 2 weeks to cover for esophageal candidiasis and Bactrim for 21 days to cover for PCP. - Continue Steroids for a couple more days - Dr Covington and Dr Leon following - Case Management following for [facility] placement. HIV - Restarted antivirals this admission, transition back to Biktarvy outpt - Follows with Dr Coivngton, consulted, apprec recs - CD4 21. Viral load pending Severely immunosuppressed Normocytic Anemia - Continue Folic acid replacement Transaminitis Hyponatremia, stable Hx of seizures - Per chart review was on Carbamazepime. Only takes while in [facility] as he cannot afford it. Hx of drug abuse - UDS positive for cocaine Hx of Incarceration Homelessness DVT ppx: Lovenox GI ppx: Famotidine Addendum - Attending - Attending Attestation Date/Time: 03/07/20 1137 I personally evaluated the patient and discussed the management with Dr. Alexander. I agree with the History, Examination, Assessment and Plan documented above with any addition or exceptions noted below - Patient without complaints. Afebrile VSS. A/P: 1) Acute hypoxic resp failure- resolved. 2) Probable PCP pneumonia - Continue bactrim for 21 days. 2) HIV (+) - continue antiretrovirals.
[2020-03-07] MEDS ORDERED: Ondansetron PF 4 MG/2 ML Vial IVP SCH (07:45)
[2020-03-07] MEDS: Famotidine 20 MG TAB PO SCH ×2 (08:10→20:32)
[2020-03-07] MEDS: predniSONE 20 MG TAB PO SCH (08:10)
[2020-03-07] MEDS: Fluconazole 100 MG TAB PO SCH (08:11)
[2020-03-07] MEDS: Folic Acid 1 MG TAB PO SCH (08:11)
[2020-03-07] MEDS: Lopinavir/Ritonavir 80 MG/20 MG per ML Oral Solution PER TUBE SCH ×2 (08:13→20:33)
[2020-03-07] MEDS: Enoxaparin Sodium 40 MG/0.4 ML SYRINGE SC SCH (08:13)
[2020-03-07] MEDS: cefTRIAXone\\ROCEPHIN 2 GM in Sodium Chloride 0.9% 100 ML IVPB SCH (17:15)
[2020-03-08] MEDS: Sulfameth/Trimethoprim DS 800-160mg TAB PO SCH ×4 (05:16→23:06)
--- NOTE | 2020-03-08 07:19 | PDOC.FM ---
- Subjective Subjective: Doing well today. Reports weakness, has been working with PT/OT. - Objective MAR Reviewed: Yes Vital Signs & Weight: Vital Signs (12 hours) Temp Pulse Resp BP Pulse Ox 03/07/20 20:04 98.1 F 68 18 112/74 97 03/07/20 20:00 97 Weight Admit Weight 56.7 kg Weight 64 kg Most Recent Monitor Data Heart Rate from ECG 66 NIBP 94/64 NIBP BP-Mean 74 Respiration from ECG 24 SpO2 99 I&O: 03/07/20 03/08/20 03/09/20 06:59 06:59 06:59 Intake Total 820 1570 Output Total 500 2000 Balance 320 -430 Result Diagrams: 03/05/20 03:20 03/06/20 05:28 Phys Exam - Physical Examination Constitutional: NAD HEENT: moist MMs Neck: supple Respiratory: no wheezing, clear to auscultation bilateral Cardiovascular: RRR Gastrointestinal: soft Musculoskeletal: no edema Neurological: moves all 4 limbs Psychiatric: normal affect, A&O x 3 Dx/Plan - Plan Plan: Sepsis 2/2 Acute hypoxic respiratory failure 2/2 likely PCP pneumonia - Continue Ceftriaxone 2g, Fluconazole for total of 2 weeks to cover for esophageal candidiasis and Bactrim for 21 days to cover for PCP. Continue Steroids - Dr Covington and Dr Leon following Deconditioning - CM following for [facility] placement. HIV - Restarted antivirals this admission, transition back to Biktarvy outpt - Follows with Dr Covington, consulted, apprec recs - CD4 21. Viral load pending Severely immunosuppressed Normocytic Anemia: Continue Folic acid replacement Transaminitis Hyponatremia, stable Hx of seizures: Per chart review was on Carbamazepime. Only takes while in [facility] as he cannot afford it. Hx of drug abuse - UDS positive for cocaine Hx of Incarceration Homelessness DVT ppx: Lovenox GI ppx: Famotidine Addendum - Attending - Attending Attestation Date/Time: 03/08/20 [id number] I personally evaluated the patient and discussed the management with Dr. Alexander I agree with the History, Examination, Assessment and Plan documented above with any addition or exceptions noted below - Patient withouc omaplints. Afebrile VSS. A/P: 1) Probable PCP pneumonia- continue bactrim (stop on March 23)) . Wean steroids as per ID. 2) Candidial esophagitis- odonyphagia improving; continue diflucan for 2 weeks. 3) HIV (+) - continue as antiretrovirals as per ID. 4) Deconditioining- continue PT; patient with no insurance and social situation; case management for assistance.
[2020-03-08] MEDS: Famotidine 20 MG TAB PO SCH ×2 (07:58→20:53)
[2020-03-08] MEDS: Fluconazole 100 MG TAB PO SCH (07:58)
[2020-03-08] MEDS: Folic Acid 1 MG TAB PO SCH (07:59)
[2020-03-08] MEDS: Enoxaparin Sodium 40 MG/0.4 ML SYRINGE SC SCH (07:59)
[2020-03-08] MEDS: predniSONE 20 MG TAB PO SCH (07:59)
[2020-03-08] MEDS: Lopinavir/Ritonavir 80 MG/20 MG per ML Oral Solution PER TUBE SCH ×2 (08:00→20:53)
--- NOTE | 2020-03-08 16:25 | PRG ---
DATE OF SERVICE: 03/08/2020 SUBJECTIVE: Mr. Pettit is feeling better, still coughing intermittently. He is able to walk to the bathroom with the assistance of a walker, having liquid stool intermittently. No chest pain, somewhat he describes as gurgling in the stomach after eating. OBJECTIVE: VITAL SIGNS: Normal. O2 saturations are 95% on room air. GENERAL: Appears better overall, coughing intermittently. LUNGS: Sounds with some inspiratory crackles particularly in the right base. No wheezing. HEART: S1 and S2. Regular rate. No S3 or S4. ABDOMEN: Soft, not distended or tender. EXTREMITIES: Moves extremities equally. LABORATORY DATA: White cell count 6.3, hemoglobin 9.8. Chemistry unremarkable. MEDICATIONS: The patient currently on Bactrim, Valcyte, ceftriaxone, Kaletra, lamivudine. Rocephin will probably be discontinued soon. ASSESSMENT AND DISCUSSION: Longstanding human immunodeficiency virus infection with poor adherence to anti-retroviral therapy, now pneumonia with possibility of Pneumocystis with improvement. Currently, on Bactrim. Rocephin can be discontinued soon. Continue Valcyte for cytomegalovirus viremia. Continue Diflucan. Having some issues with swallowing. If that continues, he may need an EGD. Otherwise, he will be able to be discharged soon. 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 Job ID: [id number]
[2020-03-08] MEDS: cefTRIAXone\\ROCEPHIN 2 GM in Sodium Chloride 0.9% 100 ML IVPB SCH (16:45)
[2020-03-09] MEDS: Sulfameth/Trimethoprim DS 800-160mg TAB PO SCH ×3 (05:33→17:38)
--- NOTE | 2020-03-09 06:22 | PDOC.FM ---
- Subjective Subjective: Pt doing well this morning. Denies any shortness of breath. States he gets very winded when ambulating. Agrees with current plan for rehab placement and I&D follow up. - Objective Vital Signs & Weight: Vital Signs (12 hours) Temp Pulse Resp BP Pulse Ox 03/08/20 20:00 97.6 F 72 18 117/76 96 Weight Admit Weight 56.7 kg Weight 64 kg Most Recent Monitor Data Heart Rate from ECG 66 NIBP 94/64 NIBP BP-Mean 74 Respiration from ECG 24 SpO2 99 I&O: 03/07/20 03/08/20 03/09/20 06:59 06:59 06:59 Intake Total 820 1570 1450 Output Total 500 2000 2200 Balance 320 -430 -750 Result Diagrams: 03/05/20 03:20 03/06/20 05:28 Phys Exam - Physical Examination Constitutional: NAD HEENT: moist MMs Respiratory: no wheezing, no rales, no rhonchi, clear to auscultation bilateral Cardiovascular: RRR Gastrointestinal: soft, non-tender Neurological: moves all 4 limbs Psychiatric: A&O x 3 Dx/Plan (1) HIV (human immunodeficiency virus infection) Code(s): B20 - HUMAN IMMUNODEFICIENCY VIRUS [HIV] DISEASE Status: Acute (2) PCP (pneumocystis jiroveci pneumonia) Code(s): B59 - PNEUMOCYSTOSIS Status: Acute (3) Altered mental status Code(s): R41.82 - ALTERED MENTAL STATUS, UNSPECIFIED Status: Acute - Plan Plan: Sepsis 2/2 Acute hypoxic respiratory failure 2/2 likely PCP pneumonia - Sepsis has resolved and pt satting appropriately on room air currently - Continue Fluconazole for total of 2 weeks to cover for esophageal candidiasis and Bactrim for 21 days to cover for PCP. Continue Steroids - Dr Covington and Dr Leon following - Rocephugh DC'd Deconditioning - CM following for [facility] placement. HIV - Restarted antivirals this admission, transition back to Biktarvy outpt to be acquired from Dr. Covington office - Follows with Dr Covington, consulted, apprec recs - CD4 21. Viral load pending Severely immunosuppressed Normocytic Anemia - Continue Folic acid replacement Transaminitis Hyponatremia, stable Hx of seizures - Per chart review was on Carbamazepime. Only takes while in [facility] as he cannot afford it. Hx of drug abuse - UDS positive for cocaine Hx of Incarceration Homelessness DVT ppx: Lovenox GI ppx: Famotidine Addendum - Attending - Attending Attestation Date/Time: 03/09/20 7556 I personally evaluated the patient and discussed the management with Dr. Quershi. I agree with the History, Examination, Assessment and Plan documented above with any addition or exceptions noted below. Patient stable. Continue to work with ID about getting HIV meds. Continue to work with PT and with CM regarding possible placement.
[2020-03-09] MEDS: Famotidine 20 MG TAB PO SCH ×2 (08:08→21:05)
[2020-03-09] MEDS: Lopinavir/Ritonavir 80 MG/20 MG per ML Oral Solution PER TUBE SCH ×2 (08:08→21:10)
[2020-03-09] MEDS: Folic Acid 1 MG TAB PO SCH (08:09)
[2020-03-09] MEDS: Enoxaparin Sodium 40 MG/0.4 ML SYRINGE SC SCH (08:10)
[2020-03-09] MEDS: predniSONE 20 MG TAB PO SCH (08:10)
[2020-03-09] MEDS: Fluconazole 100 MG TAB PO SCH (08:10)
[2020-03-09 10:38] LABS: LOG10 HIV-1 RNA 6.324 (.)
[2020-03-10] MEDS: Sulfameth/Trimethoprim DS 800-160mg TAB PO SCH ×5 (00:35→23:24)
--- NOTE | 2020-03-10 07:03 | PDOC.FM ---
- Subjective Subjective: Pt denies any complaints this morning. No events overnight. States that he feels he is continuing to be able to do more. States he gets short of breath regularly with activity but is usually able to continue and does not have to stop. - Objective Vital Signs & Weight: Vital Signs (12 hours) Temp Pulse Resp BP Pulse Ox 03/09/20 19:42 97.8 F 79 20 106/70 98 Weight Admit Weight 56.7 kg Weight 64 kg Most Recent Monitor Data Heart Rate from ECG 66 NIBP 94/64 NIBP BP-Mean 74 Respiration from ECG 24 SpO2 99 I&O: 03/09/20 03/10/20 03/11/20 06:59 06:59 06:59 Intake Total 1450 1200 Output Total 2200 1225 Balance -750 -25 Result Diagrams: 03/05/20 03:20 03/06/20 05:28 Phys Exam - Physical Examination Constitutional: NAD HEENT: moist MMs Respiratory: clear to auscultation bilateral Cardiovascular: RRR Gastrointestinal: soft, non-tender Neurological: non-focal, moves all 4 limbs Psychiatric: normal affect, A&O x 3 Dx/Plan (1) HIV (human immunodeficiency virus infection) Code(s): B20 - HUMAN IMMUNODEFICIENCY VIRUS [HIV] DISEASE Status: Acute (2) PCP (pneumocystis jiroveci pneumonia) Code(s): B59 - PNEUMOCYSTOSIS Status: Acute (3) Altered mental status Code(s): R41.82 - ALTERED MENTAL STATUS, UNSPECIFIED Status: Acute - Plan Plan: Sepsis 2/2 Acute hypoxic respiratory failure 2/2 likely PCP pneumonia - Sepsis has resolved and pt satting appropriately on room air currently - Continue Fluconazole for total of 2 weeks to cover for esophageal candidiasis and Bactrim for 21 days to cover for PCP. Continue Steroids Deconditioning - CM following for [facility] placement, currently all options full - Pt receiving accelerated PT currently, if his functional status continues to improve may be able to DC - Pt will need to be able to ambulate an appropriate distance without desatting <92% HIV - Restarted antivirals this admission, transition back to Biktarvy outpt to be acquired from Dr. Covington office - Follows with Dr Covington, consulted, apprec recs - CD4 21 - Viral Load: 2,110,000 Severely immunosuppressed Normocytic Anemia - Continue Folic acid replacement Transaminitis Hyponatremia, stable Hx of seizures - Per chart review was on Carbamazepime. Only takes while in retirement as he cannot afford it. Hx of drug abuse - UDS positive for cocaine Hx of Incarceration Homelessness DVT ppx: Lovenox GI ppx: Famotidine Addendum - Attending - Attending Attestation Date/Time: 03/10/20 1122 I personally evaluated the patient and discussed the management with Dr. Qureshi. I agree with the History, Examination, Assessment and Plan documented above with any addition or exceptions noted below. Patient stable. Continue current meds. Continue PT and working with CM regarding possible rehab placement.
[2020-03-10] MEDS: Lopinavir/Ritonavir 80 MG/20 MG per ML Oral Solution PER TUBE SCH ×2 (09:56→21:06)
[2020-03-10] MEDS: Famotidine 20 MG TAB PO SCH ×2 (09:57→21:06)
[2020-03-10] MEDS: Fluconazole 100 MG TAB PO SCH (09:57)
[2020-03-10] MEDS: Folic Acid 1 MG TAB PO SCH (09:57)
[2020-03-10] MEDS: predniSONE 20 MG TAB PO SCH (09:57)
[2020-03-10] MEDS: Enoxaparin Sodium 40 MG/0.4 ML SYRINGE SC SCH (09:57)
[2020-03-11] MEDS: Sulfameth/Trimethoprim DS 800-160mg TAB PO SCH ×3 (05:59→17:30)
--- NOTE | 2020-03-11 07:03 | PDOC.FM ---
- Subjective Subjective: Pt denies any complaints this morning. Tolerating PO well. Continues to work with PT and notes continual improvement - still with some dyspnea. Discussed plan for pulse ox monitoring during ambulation today and possible DC within the next day or two pending continued improvement and pt was agreeable. - Objective Vital Signs & Weight: Vital Signs (12 hours) Temp Pulse Resp BP Pulse Ox 03/10/20 19:22 97.9 F 80 20 112/75 98 Weight Admit Weight 56.7 kg Weight 64 kg Most Recent Monitor Data Heart Rate from ECG 66 NIBP 94/64 NIBP BP-Mean 74 Respiration from ECG 24 SpO2 99 I&O: 03/10/20 03/11/20 03/12/20 06:59 06:59 06:59 Intake Total 1200 Output Total 1225 Balance -25 Result Diagrams: 03/05/20 03:20 03/06/20 05:28 Phys Exam - Physical Examination Constitutional: NAD Thin HEENT: moist MMs Neck: full ROM Few basilar crackles, worse on left Cardiovascular: RRR Musculoskeletal: no edema, pulses present Neurological: moves all 4 limbs Psychiatric: normal affect, A&O x 3 Dx/Plan (1) HIV (human immunodeficiency virus infection) Code(s): B20 - HUMAN IMMUNODEFICIENCY VIRUS [HIV] DISEASE Status: Acute (2) PCP (pneumocystis jiroveci pneumonia) Code(s): B59 - PNEUMOCYSTOSIS Status: Acute (3) Altered mental status Code(s): R41.82 - ALTERED MENTAL STATUS, UNSPECIFIED Status: Acute - Plan Plan: Sepsis 2/2 Acute hypoxic respiratory failure 2/2 likely PCP pneumonia - Sepsis has resolved and pt satting appropriately on room air currently - Continue Fluconazole for total of 2 weeks to cover for esophageal candidiasis and Bactrim for 21 days to cover for PCP. Continue Steroids Deconditioning - CM following for [facility] placement, currently all options full - Pt receiving accelerated PT currently, if his functional status continues to improve may be able to DC - Pt will need to be able to ambulate an appropriate distance without desatting <92% - Plan to road test him today HIV - Restarted antivirals this admission, transition back to Biktarvy outpt to be acquired from Dr. Covington office - Follows with Dr Covington, consulted, apprec recs - CD4 21 - Viral Load: 2,110,000 Severely immunosuppressed Normocytic Anemia - Continue Folic acid replacement Transaminitis Hyponatremia, stable Hx of seizures - Per chart review was on Carbamazepime. Only takes while in residential as he cannot afford it. Hx of drug abuse - UDS positive for cocaine Hx of Incarceration Homelessness DVT ppx: Lovenox GI ppx: Famotidine Addendum - Attending - Attending Attestation Date/Time: 03/11/20 1120 I personally evaluated the patient and discussed the management with Dr. Qureshi. I agree with the History, Examination, Assessment and Plan documented above with any addition or exceptions noted below. Patient doing well. Waiting to see if he qualifies for home O2 and then possible dc home with his sister. Will need close ID follow up to ensure he remains on HAART.
[2020-03-11 07:38] VITALS: TEMP 98.4
[2020-03-11] MEDS: Lopinavir/Ritonavir 80 MG/20 MG per ML Oral Solution PER TUBE SCH (08:53)
[2020-03-11] MEDS: Enoxaparin Sodium 40 MG/0.4 ML SYRINGE SC SCH (08:53)
[2020-03-11] MEDS: Famotidine 20 MG TAB PO SCH (08:54)
[2020-03-11] MEDS: predniSONE 20 MG TAB PO SCH (08:54)
[2020-03-11] MEDS: Folic Acid 1 MG TAB PO SCH (08:54)
[2020-03-11] MEDS: Fluconazole 100 MG TAB PO SCH (08:54)
[2020-03-11 15:07] VITALS: BMI 23.4
[2020-03-11 18:55] VITALS: BP 117/75
--- NOTE | 2020-03-12 07:22 | PQF ---
KAY ROSARIO JASON MD *r* [id number] CLINICAL DOCUMENTATION CLARIFICATION FORM: POST DISCHARGE Addendum to original discharge summary date: ____ Late entry note date: __ DATE: 03/12/20 ATTN: Chaparro Barney Please exercise your independent, professional judgment in responding to the clarification form. Clinical indicators are provided on the bottom of this form for your review Can you please further clarify the specificity of HIV? Please check appropriate box(s): [ ] Symptomatic HIV infection status [ ] Asymptomatic HIV infection status [ X ] AIDS [ ] Other diagnosis please specify [ ] Unable to determine In addition, please specify: Present on Admission (POA): [X ] Yes [ ] No [ ] Unable to determine For continuity of documentation, please document condition throughout progress notes and discharge summary. Thank You. CLINICAL INDICATORS - SIGNS / SYMPTOMS / LABS H and P pg.1- In the ED tachypnea, tachycardia H and P pg.1- EMS recorded temp of 103.2 H and P pg.3- HIV no non compliant with Biktarvy H and P pg.4- HIV + Consult Dr. Leon pg.2- HIV, non compliant Consult Dr. Covington pg.1- HIV seropositive status, advance immunosuppression Consult Dr. Covington pg.1- The CD4 last year was 50. Viral load was high at 300, [address] Covington pg.2- Differential dx includes Pneumocystis pneumonia plus additional opportunistic process. Consult Dr. Covington pg.2-my esophagitis is likely RISK FACTORS history of HIV- H and P pg.1 Smoker- H and P pg.1 Sepsis- H and P pg.3 Acute respiratory failure= H and P pg.3 Pneumonia- H and P pg.3 Pneumocystis jiroveci pneumonia- Hospitalist PN pg.2 Severely immuno suppressed- PN pg.2 TREATMENTS: Chest X ray 03/[address] Leon 03/[address] Leon 03/02 IV Fluids- MAR Bactrim 300mg IV- MAR Azithromycin 500mg IV- MAR Etravirine 200mg IV- MAR Lamivudine 150 mg IV- MAR (This form is maintained as a part of the permanent medical record) 2014 [employer]. All Rights Reserved [email or web address]
--- NOTE | 2020-03-13 04:22 | DIS ---
DATE OF ADMISSION: 03/02/2020 DATE OF DISCHARGE: 03/11/2020 ADMITTING ATTENDING: Angelic Lim MD. DISCHARGE ATTENDING: Chaparro Metz MD. RESIDENT: Eder Qureshi DO. CONSULTATIONS: 1. Infectious Disease, Dr. Covington. 2. Pulmonary Critical Care, Dr. Leon. PROCEDURES: 1. Endotracheal intubation, 03/02/2012. 2. Endotracheal extubation 03/04/2020. IMAGIN. Chest x-ray 03/03/2020: Impression: Bibasilar infiltrative lung change. 2. Chest x-ray 03/04/2020: Impression: No significant interval changes. 3. Chest x-ray 03/05/2020: Impression: Interval removal of endotracheal and nasogastric tube, improved aeration of the lung parenchyma. Residual opacities in lung bases remain. PRIMARY DIAGNOSES: 1. Sepsis secondary to pneumonia-possible Pneumocystis pneumonia. 2. Esophageal candidiasis. 3. Human immunodeficiency virus. 4. Drug abuse. SECONDARY DIAGNOSES: 1. Normocytic anemia. 2. Transaminitis. 3. Hyponatremia. 4. Elevated human immunodeficiency virus viral load, low CD4 count. DISCHARGE MEDICATIONS: 1. Etravirine 200 mg twice daily. 2. Fluconazole 100 mg p.o. daily. 3. Folvite 1 mg p.o. daily. 4. Epivir 100 mg twice daily. 5. Kaletra 400 mg twice daily. 6. Bactrim Double Strength 2 tabs p.o. q.6 hours x12 days. 7. Valcyte 900 mg p.o. b.i.d. HISTORY OF PRESENT ILLNESS AND HOSPITAL COURSE: A 39-year-old male presented to [facility] ER for an acute hypoxic respiratory failure requiring intubation. He was then transferred here to [facility] for further care. Initially presented febrile with a reported history of shortness of breath x3 days. The patient denied any COVID exposures. Initial chest x-ray showed left lower lobe infiltrate. The patient received Bactrim, azithromycin and ceftriaxone. The patient has a history of HIV infections and was previously on Biktarvy. Review from his pharmacy shows that he has not refilled his medications since July of 2019. Upon admission, Dr. Covington, Infectious Disease, was consulted. The patient was admitted to the CCU and followed by Dr. Edward Lyons with Pulmonary Critical Care. The patient's CD4 count was found to be at 21. After 2 days of ventilation, the patient was extubated on 03/04 and was saturating in the high 90s on 2 L of nasal cannula. Repeat chest x-rays showed continued representation of bibasilar infiltrates. It was felt that based upon patient's CD4 count, this was likely related to PCP pneumonia. The patient was started on long-term Bactrim therapy. He is also having pain and trouble swallowing, which was felt likely be due to esophageal candidiasis and was started on long-term Diflucan. Due to the patient's low CD4, he was also started on valganciclovir for CMV prophylaxis. He had a negative PCR during his admission for this. The patient continued to work with PT and OT and quickly required no supplemental oxygen. He remained quite deconditioned and often became dyspneic while ambulating. After continued work with PT and OT , and improvement in his respiratory status while addressing his likely pneumocystic pneumonia, the patient was able to ambulate on his own with a walker adequately. The patient was subsequently discharged to his sister's home who had agreed to help him following his admission. The patient was instructed to see Dr. 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 Covington worked on getting him state aid for medication assistance. DISCHARGE INSTRUCTIONS: Location: Home. Diet: Supplemental, regular. Activity: As tolerated by cardiopulmonary limits. FOLLOWUP: Follow up PCP within 7 days, Dr. Covington as directed. Job ID: [id number]
== END 2020-03-11 19:15 | disposition home or self-care (01) | DRG 974 ==
LOC: CCU 10:54 → T4-A 03-05 11:33
PROVIDERS: ADMIT Family Medicine; ATTEND Family Medicine
PROC: 5A1945Z Respiratory Ventilation, 24-96 Consecutive Hours (ICD-10-PCS; principal; 2020-03-02)
PROC: 0BP1XDZ Removal of Intraluminal Device from Trachea, External Approach (ICD-10-PCS; 2020-03-04)
DX: A41.89 Other specified sepsis (principal); J96.01 Acute respiratory failure with hypoxia; B20 Human immunodeficiency virus [HIV] disease; B59 Pneumocystosis; E43 Unspecified severe protein-calorie malnutrition; E87.1 Hypo-osmolality and hyponatremia; B37.81 Candidal esophagitis; Z20.828 Contact with and (suspected) exposure to other viral communicable diseases; E88.09 Other disorders of plasma-protein metabolism, not elsewhere classified; D64.9 Anemia, unspecified; F17.210 Nicotine dependence, cigarettes, uncomplicated; Z59.0 Homelessness; Z68.23 Body mass index [BMI] 23.0-23.9, adult; Z91.14 Patient's other noncompliance with medication regimen
CPT/HCPCS: 36415; 71045; 80048; 80053; 80306; 82533; 82607; 82728; 82746; 82805; 83036; 83540; 83550; 83935; 84300; 85025; 85048; 85060; 86361; 87449; 87497; 87536; 87899; 94002; 94003; C9399; J0456; J0696; J1450; J1650; J2060; J2405; J2704; J2920; J3010; J3490; J7050; J7070; J7512; J8499; S0028

== ENCOUNTER 2021-08-07 09:40 | Inpatient (IN) | payer SELFPAY ==
[2021-08-07] MEDS ORDERED: Dexamethasone 10 MG/ML VIAL ONE (10:32)
[2021-08-07 11:17] LABS: ALT (SGPT) 7 U/L (8-55); AST (SGOT) 24 U/L (5-34); Albumin 3.4 g/dL (3.5-5.0); Alkaline Phosphatase 39 U/L (40-110); Anion Gap 16 mmol/L (10-20); BUN (Urea Nitrogen) 10 mg/dL (8.9-20.6); Bilirubin, Total 0.5 mg/dL (0.2-1.2); Calc. Creatinine Clearance 0 mL/min (70-130); Calcium 8.8 mg/dL (7.8-10.44); Carbon Dioxide 23 mmol/L (22-29); Chloride 97 mmol/L (98-107); Globulin 4.1 g/dL (2.4-3.5); Glucose 84 mg/dL (70-105); Potassium 4.1 mmol/L (3.5-5.1); Protein, Total 7.5 g/dL (6.0-8.3); Sodium 132 mmol/L (136-145)
[2021-08-07 11:19] LABS: Band 20 % (5-11); Hemoglobin 11.6 g/dL (14.0-18.0); Lymphocytes 7 % (21-51); MDiff Complete? YES; Mean Corpuscular Volume 94.1 fL (78.0-98.0); Mean Platelet Volume 7.6 fL (7.4-10.4); Monocytes 4 % (0-10); Neutrophil 69 % (42-75); Platelet Count 256 thou/uL (130-400); RBC Distribution Width 12.8 % (11.5-14.5); Red Blood Cell (RBC) Count 3.64 mill/uL (4.70-6.10); White Blood Cell (WBC) Count 5.2 thou/uL (4.8-10.8)
[2021-08-07] MEDS ORDERED: Albuterol 200 PUFF (6.7GM INHALER) ONE (11:20)
[2021-08-07] MEDS ORDERED: Iopamidol-370 76% 500 ML 1 ML ONE (12:21)
[2021-08-07] MEDS ORDERED: Cefepime 2 GM VIAL ONE ×2 (12:42)
[2021-08-07 13:13] LABS: Actual Bicarbonate (HCO3a) 22.7 mEq/L (22-28); Analyzer IN Cardio ER; Base Excess (BEa) 1.4 mEq/L (-2.0 to +3.0); CO2 Tension 26.1 mmHg (35.0-45.0); Calcium, Ionized (arterial) 1.12 mmol/L (1.12-1.30); Carboxyhemoglobin (COHb) 0.7 gm% (0.0-3.0); Hemoglobin (Hb) 11.3 g/dL (14.0-18.0); O2 Tension (PaO2), arterial 70.5 mmHg (80.0-100.0); Potassium - ABG Lab 3.85 mmol/L (3.70-5.30)
[2021-08-07 13:14] LABS: ALV-art Gradient 46.605 mmHg (0-20); Puncture Site LRA; pH, Arterial 7.56 (7.35-7.45)
[2021-08-07] MEDS ORDERED: Ondansetron PF 4 MG/2 ML Vial IVP PRN (13:42)
[2021-08-07] MEDS ORDERED: Senokot S 8.6-50 MG TAB PO PRN (13:42)
[2021-08-07] MEDS ORDERED: Calcium Carbonate 500 MG ChewTAB PO PRN (13:42)
[2021-08-07] MEDS ORDERED: Bisacodyl 10 MG SUPP PR PRN (13:42)
[2021-08-07] MEDS ORDERED: Acetaminophen 325 MG TAB PO PRN (13:42)
[2021-08-07 13:44] LABS: SARS-CoV-2 NAA Rapid Test Not Detected (NotDetected)
[2021-08-07] MEDS ORDERED: Vancomycin 1 GM/200 ML BAG ONE (13:45)
[2021-08-07 16:55] LABS: Acetaminophen Less than 6.0 mcg/mL (10.0-30.0); Alcohol Less than 10 mg/dL (Less than 10); Salicylate Less than 8.0 mg/dL (15.0-30.0)
[2021-08-07] MEDS ORDERED: Sulfameth/Trimethoprim DS 800-160mg TAB PO SCH ×2 (17:00→21:00)
[2021-08-07] MEDS: Azithromycin 500 MG in Sodium Chloride 0.9% 250 ML 250 ML IVPB SCH (17:09)
[2021-08-07] MEDS: methylPREDNISolone Sod Succ 40 MG VIAL IVP SCH (17:40)
[2021-08-07 18:37] LABS: Amphetamine Not Detected (NotDetected); Barbiturates Screen Not Detected (NotDetected); Benzodiazepine Screen Not Detected (NotDetected); Cocaine Metabolite Screen Detected (NotDetected); Methadone Not Detected (NotDetected); Methamphetamine Not Detected (NotDetected); Opiate Screen Not Detected (NotDetected); Oxycodone Screen Not Detected (NotDetected); Phencyclidine (PCP) Not Detected (NotDetected); THC/Cannabinoid Screen Not Detected (NotDetected); Tricyclic Screen Not Detected (NotDetected)
[2021-08-07] MEDS ORDERED: FLU VACC QS2021-22(6MOS UP)/PF 60 MCG/0.5 ML SYRINGE IM ONE (18:45)
[2021-08-07] MEDS: Famotidine 20 MG TAB PO SCH (20:32)
[2021-08-07] MEDS: Sulfameth/Trimethoprim DS 800-160mg TAB PO SCH (20:32)
[2021-08-08] MEDS: Cefepime 1 GM in Sodium Chloride 0.9% 100 ML IVPB SCH ×2 (00:05→13:06)
[2021-08-08] MEDS: methylPREDNISolone Sod Succ 40 MG VIAL IVP SCH ×3 (00:05→11:47)
[2021-08-08] MEDS: Famotidine 20 MG TAB PO SCH ×2 (08:05→20:38)
[2021-08-08] MEDS: Sulfameth/Trimethoprim DS 800-160mg TAB PO SCH ×3 (08:05→20:38)
[2021-08-08] MEDS: Enoxaparin Sodium 40 MG/0.4 ML SYRINGE SC SCH (08:06)
[2021-08-08 08:30] LABS: ALT (SGPT) 7 U/L (8-55); AST (SGOT) 19 U/L (5-34); Alkaline Phosphatase 34 U/L (40-110); Anion Gap 12 mmol/L (10-20); BUN (Urea Nitrogen) 13 mg/dL (8.9-20.6); Bilirubin, Total 0.2 mg/dL (0.2-1.2); Calc. Creatinine Clearance 127 mL/min (70-130); Calcium 8.5 mg/dL (7.8-10.44); Carbon Dioxide 22 mmol/L (22-29); Chloride 104 mmol/L (98-107); Globulin 3.7 g/dL (2.4-3.5); Glucose 132 mg/dL (70-105); Potassium 4.3 mmol/L (3.5-5.1); Protein, Total 6.7 g/dL (6.0-8.3); Sodium 134 mmol/L (136-145)
[2021-08-08 08:35] LABS: Band 21 % (5-11); Hemoglobin 10.8 g/dL (14.0-18.0); Lymphocytes 6 % (21-51); MDiff Complete? YES; Mean Corpuscular HGB CONC 33.8 g/dL (32.0-36.0); Mean Corpuscular Hemoglobin 31.7 pg (27.0-31.0); Mean Corpuscular Volume 93.8 fL (78.0-98.0); Mean Platelet Volume 7.7 fL (7.4-10.4); Monocytes 2 % (0-10); Neutrophil 71 % (42-75); Platelet Count 256 thou/uL (130-400); RBC Distribution Width 12.8 % (11.5-14.5); White Blood Cell (WBC) Count 5.4 thou/uL (4.8-10.8)
[2021-08-08] MEDS ORDERED: Bictegrav/Emtricit/Tenofov Ala [Biktarvy 50-200-25 Mg Tablet] PO SCH (09:00)
[2021-08-08] MEDS ORDERED: Fluconazole 100 MG TAB PO SCH (09:00)
[2021-08-08] MEDS: Azithromycin 500 MG in Sodium Chloride 0.9% 250 ML 250 ML IVPB SCH (16:01)
[2021-08-09] MEDS: Cefepime 1 GM in Sodium Chloride 0.9% 100 ML IVPB SCH ×2 (00:24→12:06)
[2021-08-09] MEDS: Enoxaparin Sodium 40 MG/0.4 ML SYRINGE SC SCH (08:09)
[2021-08-09] MEDS: Sulfameth/Trimethoprim DS 800-160mg TAB PO SCH ×3 (08:10→21:47)
[2021-08-09] MEDS: Famotidine 20 MG TAB PO SCH ×2 (08:10→21:47)
[2021-08-09] MEDS: Azithromycin 500 MG in Sodium Chloride 0.9% 250 ML 250 ML IVPB SCH (13:54)
[2021-08-09 19:13] LABS: %CD4 (Helper/Inducer) 0.7 % (30.8-58.5); Absolute CD4 2 /uL (359-1519); Lymphocytes/Gated Cell Count 0.3 x10E3/uL (0.7-3.1); Total Lymphocyte 6 % (Not Estab.); WBC Total Count 4.5 x10E3/uL (3.4-10.8)
[2021-08-09] MEDS: Raltegravir Potassium 400 MG TAB PO SCH (21:47)
[2021-08-10] MEDS: Cefepime 1 GM in Sodium Chloride 0.9% 100 ML IVPB SCH ×2 (00:23→13:31)
[2021-08-10] MEDS: Raltegravir Potassium 400 MG TAB PO SCH ×2 (09:19→21:32)
[2021-08-10] MEDS: Famotidine 20 MG TAB PO SCH ×2 (09:20→21:32)
[2021-08-10] MEDS: Emtricitabine/Tenofovir 200-300 MG TAB PO SCH (09:20)
[2021-08-10] MEDS: Enoxaparin Sodium 40 MG/0.4 ML SYRINGE SC SCH (09:20)
[2021-08-10] MEDS: Sulfameth/Trimethoprim DS 800-160mg TAB PO SCH ×3 (09:20→21:33)
[2021-08-10] MEDS: Azithromycin 500 MG in Sodium Chloride 0.9% 250 ML 250 ML IVPB SCH (14:07)
[2021-08-10 18:36] LABS: CMV log 10 Quant 4.199 (.)
[2021-08-11] MEDS: Cefepime 1 GM in Sodium Chloride 0.9% 100 ML IVPB SCH ×2 (01:15→12:49)
[2021-08-11] MEDS: Guaifenesin DM 100-10/5 ML UDCUP PO PRN ×2 (06:27→21:14)
[2021-08-11] MEDS: Enoxaparin Sodium 40 MG/0.4 ML SYRINGE SC SCH (08:09)
[2021-08-11] MEDS: Raltegravir Potassium 400 MG TAB PO SCH ×2 (08:09→21:16)
[2021-08-11] MEDS: Sulfameth/Trimethoprim DS 800-160mg TAB PO SCH ×3 (08:09→21:15)
[2021-08-11] MEDS: Famotidine 20 MG TAB PO SCH ×2 (08:09→21:14)
[2021-08-11] MEDS: Emtricitabine/Tenofovir 200-300 MG TAB PO SCH (08:09)
[2021-08-11] MEDS: Azithromycin 500 MG in Sodium Chloride 0.9% 250 ML 250 ML IVPB SCH (13:56)
[2021-08-12 08:05] VITALS: BP 113/71; TEMP 97.3
[2021-08-12] MEDS: Emtricitabine/Tenofovir 200-300 MG TAB PO SCH (08:23)
[2021-08-12] MEDS: Enoxaparin Sodium 40 MG/0.4 ML SYRINGE SC SCH (08:23)
[2021-08-12] MEDS: Sulfameth/Trimethoprim DS 800-160mg TAB PO SCH (08:24)
[2021-08-12] MEDS: Raltegravir Potassium 400 MG TAB PO SCH (08:24)
[2021-08-12] MEDS: Famotidine 20 MG TAB PO SCH (08:24)
[2021-08-12] MEDS ORDERED: Doxycycline 100 MG CAP PO SCH (09:00)
[2021-08-13 01:09] LABS: QuantiFERON-TB Gold Plus Negative (Negative)
== END 2021-08-12 11:33 | disposition home or self-care (01) | DRG 974 ==
LOC: ERS 09:40 → T4-B 13:10
PROVIDERS: ADMIT Internal Medicine; ATTEND Internal Medicine
DX: B20 Human immunodeficiency virus [HIV] disease (principal); B59 Pneumocystosis; B25.0 Cytomegaloviral pneumonitis; E87.1 Hypo-osmolality and hyponatremia; B37.0 Candidal stomatitis; F14.10 Cocaine abuse, uncomplicated; F12.10 Cannabis abuse, uncomplicated; R56.9 Unspecified convulsions; D64.9 Anemia, unspecified; R91.1 Solitary pulmonary nodule; Z20.822 Contact with and (suspected) exposure to COVID-19; F17.210 Nicotine dependence, cigarettes, uncomplicated; Z91.14 Patient's other noncompliance with medication regimen; Z71.51 Drug abuse counseling and surveillance of drug abuser
CPT/HCPCS: 0240U; 36415; 36600; 71045; 71275; 80053; 80306; 80307; 82805; 83605; 84484; 85025; 85048; 85379; 86361; 86480; 87040; 87070; 87086; 87116; 87205; 87206; 87497; 87804; 93005; 94640; 96365; 96367; 96375; J0456; J0692; J1100; J1650; J2405; J2920; J3370; J3490; J7050; J7070; J7620; J8499; Q9967

== ENCOUNTER 2021-08-22 16:19 | Emergency (ER) | payer SELFPAY ==
[2021-08-22 17:10] LABS: #Lymphocytes 0.4 thou/uL (1.20-3.40); #Monocytes 0.2 thou/uL (0.11-0.59); #Neutrophils 1.5 thou/uL (1.40-6.50); %Basophils 0.5 % (0.0-1.0); %Eosinophils 0.2 % (0.0-10.0); %Lymphocytes 20.1 % (21.0-51.0); %Monocytes 10.4 % (0.0-10.0); %Neutrophils 68.8 % (42.0-75.0); Hemoglobin 9.3 g/dL (14.0-18.0); Mean Corpuscular HGB CONC 34.4 g/dL (32.0-36.0); Mean Corpuscular Hemoglobin 32.5 pg (27.0-31.0); Mean Corpuscular Volume 94.5 fL (78.0-98.0); Mean Platelet Volume 7.9 fL (7.4-10.4); Platelet Count 148 thou/uL (130-400); RBC Distribution Width 13.7 % (11.5-14.5); Red Blood Cell (RBC) Count 2.88 mill/uL (4.70-6.10); White Blood Cell (WBC) Count 2.1 thou/uL (4.8-10.8)
[2021-08-22 17:30] LABS: ALT (SGPT) 12 U/L (8-55); AST (SGOT) 20 U/L (5-34); Albumin 3.1 g/dL (3.5-5.0); Alkaline Phosphatase 44 U/L (40-110); Anion Gap 10 mmol/L (10-20); BUN (Urea Nitrogen) 8 mg/dL (8.9-20.6); Bilirubin, Total 0.3 mg/dL (0.2-1.2); Calc. Creatinine Clearance 0 mL/min (70-130); Carbon Dioxide 26 mmol/L (22-29); Chloride 103 mmol/L (98-107); Globulin 3.1 g/dL (2.4-3.5); Glucose 99 mg/dL (70-105); Potassium 3.3 mmol/L (3.5-5.1); Protein, Total 6.2 g/dL (6.0-8.3); Sodium 136 mmol/L (136-145)
[2021-08-22 19:16] LABS: Amphetamine Not Detected (NotDetected); Barbiturates Screen Not Detected (NotDetected); Benzodiazepine Screen Not Detected (NotDetected); Cocaine Metabolite Screen Detected (NotDetected); Methadone Not Detected (NotDetected); Methamphetamine Not Detected (NotDetected); Opiate Screen Not Detected (NotDetected); Oxycodone Screen Not Detected (NotDetected); Phencyclidine (PCP) Not Detected (NotDetected); THC/Cannabinoid Screen Not Detected (NotDetected); Tricyclic Screen Not Detected (NotDetected)
[2021-08-22 19:17] LABS: Alcohol Less than 10 mg/dL (Less than 10); Salicylate Less than 8.0 mg/dL (15.0-30.0)
[2021-08-22 19:24] LABS: Bilirubin Negative (Negative); Blood, Urine Negative (Negative); Clarity Clear (Clear); Glucose, Urine (Dipstick) Normal (Negative); Ketone, Urine Negative (Negative); Leukocyte Negative Leu/uL (Negative); Nitrite Negative (Negative); Protein, Urine (Dipstick) 10 mg/dL (Neg-Trace); Specific Gravity, Urine 1.017 (1.002-1.036); Urobilinogen 3 mg/dL (Less than 2)
== END 2021-08-22 20:50 | disposition home or self-care (01) ==
LOC: ERS 16:19
DX: D72.819 Decreased white blood cell count, unspecified (principal); F17.210 Nicotine dependence, cigarettes, uncomplicated
CPT/HCPCS: 36415; 71046; 80053; 80306; 80307; 81003; 83605; 84484; 85025; 87040; 87086; 93005; 94760

== ENCOUNTER 2021-11-13 18:58 | Emergency (ER) | payer SELFPAY ==
[2021-11-13 20:23] LABS: ALT (SGPT) 21 U/L (8-55); AST (SGOT) 58 U/L (5-34); Alkaline Phosphatase 71 U/L (40-110); Anion Gap 18 mmol/L (10-20); BUN (Urea Nitrogen) 19 mg/dL (8.9-20.6); Bilirubin, Total 1.2 mg/dL (0.2-1.2); CK (CPK) 166 U/L (30-200); Calc. Creatinine Clearance 0 mL/min (70-130); Carbon Dioxide 23 mmol/L (22-29); Chloride 99 mmol/L (98-107); Globulin 4.6 g/dL (2.4-3.5); Glucose 119 mg/dL (70-105); Lipase 38 U/L (8-78); Potassium 3.8 mmol/L (3.5-5.1); Protein, Total 7.6 g/dL (6.0-8.3); Sodium 136 mmol/L (136-145)
[2021-11-13] MEDS ORDERED: Ondansetron PF 4 MG/2 ML Vial ONE (20:23)
[2021-11-13 20:24] LABS: Band 19 % (5-11); Hemoglobin 10.6 g/dL (14.0-18.0); Lymphocytes 26 % (21-51); MDiff Complete? YES; Mean Corpuscular HGB CONC 33.6 g/dL (32.0-36.0); Mean Corpuscular Hemoglobin 31.7 pg (27.0-31.0); Mean Corpuscular Volume 94.3 fL (78.0-98.0); Mean Platelet Volume 7.9 fL (7.4-10.4); Monocytes 5 % (0-10); Neutrophil 50 % (42-75); Platelet Count 236 thou/uL (130-400); RBC Distribution Width 12.6 % (11.5-14.5); Red Blood Cell (RBC) Count 3.33 mill/uL (4.70-6.10); White Blood Cell (WBC) Count 2.8 thou/uL (4.8-10.8)
[2021-11-13] MEDS ORDERED: cefTRIAXone\\ROCEPHIN 2 GM VIAL ONE (21:20)
[2021-11-13] MEDS ORDERED: Dexamethasone 10 MG/ML VIAL ONE (21:20)
[2021-11-14 15:36] LABS: SARS-CoV-2 PCR by NAA Not Detected (NotDetected)
== END 2021-11-13 22:21 | disposition home or self-care (01) ==
LOC: ERS 18:58
DX: J18.9 Pneumonia, unspecified organism (principal); Z20.822 Contact with and (suspected) exposure to COVID-19; F17.210 Nicotine dependence, cigarettes, uncomplicated
CPT/HCPCS: 71045; 80053; 82274; 82550; 83690; 85025; 96365; 96375; J0696; J1100; J2405; U0003; U0005

== ENCOUNTER 2022-02-19 14:52 | Inpatient (IN) | payer OTHER, SELFPAY ==
[~2022-02-19 14:52] MED LIST: Iopamidol-370 76% 500 ML 1 ML ONE
[2022-02-19] MEDS ORDERED: Vancomycin 1 GM/200 ML BAG ONE (15:25)
[2022-02-19] MEDS ORDERED: Cefepime 2 GM VIAL ONE (15:25)
[2022-02-19] MEDS ORDERED: Ondansetron PF 4 MG/2 ML Vial ONE (15:25)
[2022-02-19] MEDS ORDERED: Dexamethasone 10 MG/ML VIAL ONE (15:26)
[2022-02-19 15:39] LABS: Hemoglobin 7.3 g/dL (14.0-18.0); Mean Corpuscular HGB CONC 32.8 g/dL (32.0-36.0); Mean Corpuscular Hemoglobin 30.1 pg (27.0-31.0); Mean Corpuscular Volume 91.6 fL (78.0-98.0); Mean Platelet Volume 8.5 fL (7.4-10.4); Platelet Count 220 thou/uL (130-400); RBC Distribution Width 16.6 % (11.5-14.5); Red Blood Cell (RBC) Count 2.44 mill/uL (4.70-6.10); White Blood Cell (WBC) Count 6.9 thou/uL (4.8-10.8)
[2022-02-19 15:56] LABS: Band 17 % (5-11); Lymphocytes 16 % (21-51); MDiff Complete? YES; Monocytes 4 % (0-10); Neutrophil 54 % (42-75); Ovalocytes SLIGHT = 2-5 cells (100X) (0-1/hpf); Platelet Morphology Comment Appears Adequate; Polychromasia SLIGHT = 2-3 cells (100X) (0-2/hpf); Reactive Lymphocytes 9 % (0-10)
[2022-02-19 16:00] LABS: ALT (SGPT) 29 U/L (8-55); AST (SGOT) 53 U/L (5-34); Albumin 2.6 g/dL (3.5-5.0); Alkaline Phosphatase 184 U/L (40-110); Anion Gap 14 mmol/L (10-20); BUN (Urea Nitrogen) 14 mg/dL (8.9-20.6); Bilirubin, Total 0.5 mg/dL (0.2-1.2); Calc. Creatinine Clearance 0 mL/min (70-130); Calcium 7.9 mg/dL (7.8-10.44); Carbon Dioxide 22 mmol/L (22-29); Chloride 100 mmol/L (98-107); Globulin 4.2 g/dL (2.4-3.5); Glucose 104 mg/dL (70-105); Lipase 112 U/L (8-78); Magnesium 1.8 mg/dL (1.6-2.6); Potassium 3.9 mmol/L (3.5-5.1); Protein, Total 6.8 g/dL (6.0-8.3); Sodium 132 mmol/L (136-145)
[2022-02-19 16:38] LABS: SARS-CoV-2 NAA Rapid Test Not Detected (NotDetected)
[2022-02-19 16:38] LABS: Bacteria/HPF 2+ HPF (None Seen); Bilirubin Negative (Negative); Blood, Urine Trace (Negative); Glucose, Urine (Dipstick) Normal (Negative); Ketone, Urine Negative (Negative); Leukocyte Negative Leu/uL (Negative); Nitrite Negative (Negative); Protein, Urine (Dipstick) 300 mg/dL (Neg-Trace); RBC/HPF 0-3 HPF (0-3); Squamous Epithelial 0-3 HPF (0-3)
[2022-02-19 16:39] LABS: Clarity Cloudy (Clear)
[2022-02-19 18:51] LABS: Amphetamine Not Detected (NotDetected); Barbiturates Screen Not Detected (NotDetected); Benzodiazepine Screen Not Detected (NotDetected); Cocaine Metabolite Screen Not Detected (NotDetected); Methadone Not Detected (NotDetected); Methamphetamine Not Detected (NotDetected); Opiate Screen Not Detected (NotDetected); Oxycodone Screen Not Detected (NotDetected); Phencyclidine (PCP) Not Detected (NotDetected); THC/Cannabinoid Screen Not Detected (NotDetected); Tricyclic Screen Not Detected (NotDetected)
[2022-02-19] MEDS ORDERED: Electrolyte Replacement Protocol 1 EACH FS SCH (19:00)
[2022-02-19] MEDS ORDERED: Ondansetron ODT 4 MG TAB PO PRN (19:02)
[2022-02-19] MEDS ORDERED: Ondansetron PF 4 MG/2 ML Vial IVP PRN (19:02)
[2022-02-19] MEDS ORDERED: Nitroglycerin 0.4 MG TAB (25 Tab Bottle) SL PRN (19:15)
[2022-02-19 19:21] LABS: Lactic Acid 2.7 mmol/L (0.5-2.2)
[2022-02-19 19:28] LABS: Troponin I Less than 0.010 ng/mL (< 0.028)
[2022-02-19] MEDS ORDERED: Sodium Chloride 0.9% 1,000 ML IV SCH (19:30)
[2022-02-19 21:28] VITALS: BMI 15.0
[2022-02-19 22:49] LABS: Troponin I Less than 0.010 ng/mL (< 0.028)
[2022-02-19] MEDS ORDERED: Magnesium 2 GM/50 ML(in water) 2 GM in Premix Bag 1 BAG IVPB SCH (23:00)
[2022-02-20] MEDS: Vancomycin HCl 750 MG in Sodium Chloride 0.9% 250 ML 250 ML IVPB SCH ×3 (00:17→16:10)
[2022-02-20] MEDS: Acetaminophen 325 MG TAB PO PRN ×2 (00:18→22:14)
[2022-02-20] MEDS: HYDROcodone/Acetaminophen 5/325 mg Tablet PO PRN ×4 (00:42→20:35)
[2022-02-20] MEDS ORDERED: Vancomycin 1 GM in Premix Bag 1 BAG IVPB SCH (05:00)
[2022-02-20 05:45] LABS: Hemoglobin 7.4 g/dL (14.0-18.0); Mean Corpuscular Hemoglobin 29.5 pg (27.0-31.0); Mean Corpuscular Volume 92.3 fL (78.0-98.0); Mean Platelet Volume 8.8 fL (7.4-10.4); Platelet Count 190 thou/uL (130-400); RBC Distribution Width 17.1 % (11.5-14.5); Red Blood Cell (RBC) Count 2.51 mill/uL (4.70-6.10); White Blood Cell (WBC) Count 5.8 thou/uL (4.8-10.8)
[2022-02-20 05:48] LABS: Anion Gap 11 mmol/L (10-20); BUN (Urea Nitrogen) 15 mg/dL (8.9-20.6); CRP (Inflammatory) 10.06 mg/dL (= or < 0.5); Calc. Creatinine Clearance 90 mL/min (70-130); Calcium 8.4 mg/dL (7.8-10.44); Carbon Dioxide 22 mmol/L (22-29); Chloride 105 mmol/L (98-107); Glucose 123 mg/dL (70-105); Lipase 190 U/L (8-78); Magnesium 2.3 mg/dL (1.6-2.6); Phosphorus 2.8 mg/dL (2.3-4.7); Potassium 3.7 mmol/L (3.5-5.1); Sodium 134 mmol/L (136-145)
[2022-02-20] MEDS ORDERED: Cefepime 2 GM in Sodium Chloride 0.9% 100 ML IVPB SCH (06:00)
[2022-02-20 06:46] LABS: Band 16 % (5-11); Lymphocytes 3 % (21-51); MDiff Complete? YES; Metamyelocyte 1 % (0-0); Monocytes 8 % (0-10); Neutrophil 72 % (42-75)
[2022-02-20] MEDS: Fluconazole 100 MG TAB PO SCH (08:36)
[2022-02-20] MEDS ORDERED: Electrolyte Replacement Protocol FS PRN (13:30)
[2022-02-20 15:42] LABS: Vancomycin, Trough 18.8 ug/mL
[2022-02-20] MEDS: GANCICLOVIR SODIUM IVPB SCH (20:36)
[2022-02-20] MEDS: SODIUM CHLORIDE 0.9% IVPB SCH (20:36)
[2022-02-20] MEDS ORDERED: Ganciclovir Sodium 500 MG/10 ML VIAL IVPB SCH (21:00)
[2022-02-21] MEDS: Vancomycin HCl 750 MG in Sodium Chloride 0.9% 250 ML 250 ML IVPB SCH ×3 (00:25→17:09)
[2022-02-21] MEDS: HYDROcodone/Acetaminophen 5/325 mg Tablet PO PRN ×3 (00:36→17:08)
[2022-02-21 07:30] LABS: ALT (SGPT) 24 U/L (8-55); AST (SGOT) 31 U/L (5-34); Albumin 2.3 g/dL (3.5-5.0); Alkaline Phosphatase 158 U/L (40-110); Anion Gap 11 mmol/L (10-20); BUN (Urea Nitrogen) 9 mg/dL (8.9-20.6); Bilirubin, Total 0.4 mg/dL (0.2-1.2); Calc. Creatinine Clearance 101 mL/min (70-130); Calcium 8.2 mg/dL (7.8-10.44); Carbon Dioxide 25 mmol/L (22-29); Chloride 102 mmol/L (98-107); Globulin 3.9 g/dL (2.4-3.5); Glucose 78 mg/dL (70-105); Potassium 3.7 mmol/L (3.5-5.1); Protein, Total 6.2 g/dL (6.0-8.3); Sodium 134 mmol/L (136-145)
[2022-02-21 08:24] LABS: Hemoglobin 7.7 g/dL (14.0-18.0); MDiff Complete? YES; Mean Corpuscular HGB CONC 31.1 g/dL (32.0-36.0); Mean Corpuscular Hemoglobin 28.5 pg (27.0-31.0); Mean Corpuscular Volume 91.7 fL (78.0-98.0); Mean Platelet Volume 8.5 fL (7.4-10.4); Platelet Count 211 thou/uL (130-400); RBC Distribution Width 16.8 % (11.5-14.5); Red Blood Cell (RBC) Count 2.71 mill/uL (4.70-6.10); White Blood Cell (WBC) Count 6.7 thou/uL (4.8-10.8)
[2022-02-21 08:25] LABS: Anisocytosis SLIGHT = 6-15 cells (100X) (0-5/hpf); Band 16 % (5-11); Hypochromia SLIGHT = 6-15 cells (100X) (0-5/hpf); Lymphocytes 8 % (21-51); Metamyelocyte 1 % (0-0); Monocytes 5 % (0-10); Neutrophil 70 % (42-75); Platelet Morphology Comment Appears Adequate; Polychromasia SLIGHT = 2-3 cells (100X) (0-2/hpf)
[2022-02-21] MEDS ORDERED: [UNRECOGNIZED DRUG - OTHER] PO SCH (09:00)
[2022-02-21] MEDS: Emtricitabine/Tenofovir 200-300 MG TAB PO SCH (09:50)
[2022-02-21] MEDS: Sulfameth/Trimethoprim DS 800-160mg TAB PO SCH (09:51)
[2022-02-21] MEDS: Fluconazole 100 MG TAB PO SCH (09:51)
[2022-02-21] MEDS: GANCICLOVIR SODIUM IVPB SCH ×2 (11:03→21:13)
[2022-02-21] MEDS: SODIUM CHLORIDE 0.9% IVPB SCH ×2 (11:03→21:13)
[2022-02-21] MEDS: Acetaminophen 325 MG TAB PO PRN (11:37)
[2022-02-21 23:38] LABS: Vancomycin, Trough 19.2 ug/mL
[2022-02-22] MEDS: Vancomycin HCl 750 MG in Sodium Chloride 0.9% 250 ML 250 ML IVPB SCH ×2 (00:08→08:01)
[2022-02-22] MEDS: HYDROcodone/Acetaminophen 5/325 mg Tablet PO PRN ×4 (05:02→20:54)
[2022-02-22 05:22] LABS: Mean Corpuscular HGB CONC 33.1 g/dL (32.0-36.0); Mean Corpuscular Hemoglobin 30.1 pg (27.0-31.0); Mean Corpuscular Volume 90.8 fL (78.0-98.0); Mean Platelet Volume 7.9 fL (7.4-10.4); Platelet Count 213 thou/uL (130-400); RBC Distribution Width 16.8 % (11.5-14.5); Red Blood Cell (RBC) Count 2.33 mill/uL (4.70-6.10); White Blood Cell (WBC) Count 6.4 thou/uL (4.8-10.8)
[2022-02-22 05:38] LABS: ALT (SGPT) 19 U/L (8-55); AST (SGOT) 25 U/L (5-34); Albumin 2.3 g/dL (3.5-5.0); Alkaline Phosphatase 157 U/L (40-110); Anion Gap 13 mmol/L (10-20); BUN (Urea Nitrogen) 9 mg/dL (8.9-20.6); Bilirubin, Total 0.3 mg/dL (0.2-1.2); Calc. Creatinine Clearance 99 mL/min (70-130); Calcium 7.8 mg/dL (7.8-10.44); Carbon Dioxide 25 mmol/L (22-29); Chloride 98 mmol/L (98-107); Globulin 3.8 g/dL (2.4-3.5); Glucose 94 mg/dL (70-105); Potassium 3.5 mmol/L (3.5-5.1); Protein, Total 6.1 g/dL (6.0-8.3); Sodium 132 mmol/L (136-145)
[2022-02-22 05:41] LABS: Band 18 % (5-11); Lymphocytes 5 % (21-51); MDiff Complete? YES; Monocytes 1 % (0-10); Neutrophil 76 % (42-75)
[2022-02-22] MEDS ORDERED: Potassium Chloride 20 MEQ TAB PO SCH (06:30)
[2022-02-22] MEDS: Sulfameth/Trimethoprim DS 800-160mg TAB PO SCH (08:01)
[2022-02-22] MEDS: Fluconazole 100 MG TAB PO SCH (08:01)
[2022-02-22] MEDS: Emtricitabine/Tenofovir 200-300 MG TAB PO SCH (08:02)
[2022-02-22] MEDS: GANCICLOVIR SODIUM IVPB SCH ×2 (10:49→20:54)
[2022-02-22] MEDS: SODIUM CHLORIDE 0.9% IVPB SCH ×2 (10:49→20:54)
[2022-02-23 09:03] LABS: Hemoglobin 7.1 g/dL (14.0-18.0); Mean Corpuscular HGB CONC 31.5 g/dL (32.0-36.0); Mean Corpuscular Hemoglobin 28.8 pg (27.0-31.0); Mean Corpuscular Volume 91.5 fL (78.0-98.0); Mean Platelet Volume 7.8 fL (7.4-10.4); Platelet Count 238 thou/uL (130-400); RBC Distribution Width 16.7 % (11.5-14.5); Red Blood Cell (RBC) Count 2.45 mill/uL (4.70-6.10); White Blood Cell (WBC) Count 5.2 thou/uL (4.8-10.8)
[2022-02-23 09:21] LABS: Anion Gap 12 mmol/L (10-20); BUN (Urea Nitrogen) 8 mg/dL (8.9-20.6); Calc. Creatinine Clearance 101 mL/min (70-130); Carbon Dioxide 25 mmol/L (22-29); Chloride 99 mmol/L (98-107); Glucose 89 mg/dL (70-105); Sodium 132 mmol/L (136-145)
[2022-02-23] MEDS: Emtricitabine/Tenofovir 200-300 MG TAB PO SCH (10:19)
[2022-02-23] MEDS: Fluconazole 100 MG TAB PO SCH (10:20)
[2022-02-23] MEDS: Sulfameth/Trimethoprim DS 800-160mg TAB PO SCH (10:20)
[2022-02-23] MEDS: SODIUM CHLORIDE 0.9% IVPB SCH ×2 (10:21→21:25)
[2022-02-23] MEDS: GANCICLOVIR SODIUM IVPB SCH ×2 (10:21→21:25)
[2022-02-23] MEDS: HYDROcodone/Acetaminophen 5/325 mg Tablet PO PRN ×4 (10:22→22:23)
[2022-02-23 10:37] LABS: Band 23 % (5-11); Hypochromia SLIGHT = 6-15 cells (100X) (0-5/hpf); Lymphocytes 7 % (21-51); MDiff Complete? YES; Monocytes 1 % (0-10); Neutrophil 69 % (42-75); Platelet Morphology Comment Appears Adequate; Polychromasia SLIGHT = 2-3 cells (100X) (0-2/hpf)
[2022-02-24] MEDS: HYDROcodone/Acetaminophen 5/325 mg Tablet PO PRN ×5 (03:29→20:33)
[2022-02-24 04:43] LABS: Hemoglobin 6.8 g/dL (14.0-18.0); Mean Corpuscular HGB CONC 33.6 g/dL (32.0-36.0); Mean Corpuscular Hemoglobin 30.4 pg (27.0-31.0); Mean Corpuscular Volume 90.6 fL (78.0-98.0); Mean Platelet Volume 7.7 fL (7.4-10.4); Platelet Count 218 thou/uL (130-400); RBC Distribution Width 16.9 % (11.5-14.5); Red Blood Cell (RBC) Count 2.25 mill/uL (4.70-6.10); White Blood Cell (WBC) Count 4.1 thou/uL (4.8-10.8)
[2022-02-24 05:00] LABS: Anion Gap 13 mmol/L (10-20); BUN (Urea Nitrogen) 10 mg/dL (8.9-20.6); Calc. Creatinine Clearance 106 mL/min (70-130); Calcium 7.9 mg/dL (7.8-10.44); Carbon Dioxide 24 mmol/L (22-29); Chloride 98 mmol/L (98-107); Glucose 95 mg/dL (70-105); Potassium 3.8 mmol/L (3.5-5.1); Sodium 131 mmol/L (136-145)
[2022-02-24 05:58] LABS: Band 25 % (5-11); Hypersemented Neutrophil SLIGHT; Lymphocytes 6 % (21-51); MDiff Complete? YES; Metamyelocyte 3 % (0-0); Monocytes 5 % (0-10); Myelocyte 1 % (0-0); Neutrophil 60 % (42-75); Rouleaux Formation SLIGHT = 1-5 cells (100X) (None Seen)
[2022-02-24] MEDS: GANCICLOVIR SODIUM IVPB SCH (10:18)
[2022-02-24] MEDS: Sulfameth/Trimethoprim DS 800-160mg TAB PO SCH (10:18)
[2022-02-24] MEDS: SODIUM CHLORIDE 0.9% IVPB SCH (10:18)
[2022-02-24] MEDS: Fluconazole 100 MG TAB PO SCH (10:18)
[2022-02-24 16:04] LABS: Ref Lab Test Ordered AFB CULTURE:BLOOD
[2022-02-25] MEDS: HYDROcodone/Acetaminophen 5/325 mg Tablet PO PRN ×4 (01:11→21:04)
[2022-02-25 04:51] LABS: Anion Gap 14 mmol/L (10-20); BUN (Urea Nitrogen) 8 mg/dL (8.9-20.6); Calc. Creatinine Clearance 101 mL/min (70-130); Carbon Dioxide 24 mmol/L (22-29); Chloride 95 mmol/L (98-107); Glucose 124 mg/dL (70-105); Potassium 3.9 mmol/L (3.5-5.1); Sodium 129 mmol/L (136-145)
[2022-02-25 05:01] LABS: Band 31 % (5-11); Hemoglobin 9.3 g/dL (14.0-18.0); Hypersemented Neutrophil SLIGHT; Lymphocytes 9 % (21-51); MDiff Complete? YES; Mean Corpuscular HGB CONC 33.1 g/dL (32.0-36.0); Mean Corpuscular Hemoglobin 30.2 pg (27.0-31.0); Mean Corpuscular Volume 91.3 fL (78.0-98.0); Metamyelocyte 1 % (0-0); Monocytes 6 % (0-10); Neutrophil 53 % (42-75); Platelet Count 199 thou/uL (130-400); RBC Distribution Width 15.7 % (11.5-14.5); Red Blood Cell (RBC) Count 3.09 mill/uL (4.70-6.10); Rouleaux Formation SLIGHT = 1-5 cells (100X) (None Seen); White Blood Cell (WBC) Count 4.1 thou/uL (4.8-10.8)
[2022-02-25] MEDS: Fluconazole 100 MG TAB PO SCH (10:45)
[2022-02-25] MEDS: Sulfameth/Trimethoprim DS 800-160mg TAB PO SCH (10:45)
[2022-02-25] MEDS: Benzonatate 100 MG CAP PO PRN (18:28)
[2022-02-26] MEDS: HYDROcodone/Acetaminophen 5/325 mg Tablet PO PRN ×4 (01:39→20:30)
[2022-02-26 05:32] LABS: Band 19 % (5-11); Hemoglobin 9.7 g/dL (14.0-18.0); Hypochromia SLIGHT = 6-15 cells (100X) (0-5/hpf); Lymphocytes 9 % (21-51); MDiff Complete? YES; Mean Corpuscular HGB CONC 32.6 g/dL (32.0-36.0); Mean Corpuscular Hemoglobin 29.7 pg (27.0-31.0); Mean Platelet Volume 7.8 fL (7.4-10.4); Monocytes 8 % (0-10); Neutrophil 62 % (42-75); Platelet Count 226 thou/uL (130-400); Platelet Morphology Comment Appears Adequate; RBC Distribution Width 15.9 % (11.5-14.5); Reactive Lymphocytes 2 % (0-10); Red Blood Cell (RBC) Count 3.27 mill/uL (4.70-6.10); White Blood Cell (WBC) Count 5.2 thou/uL (4.8-10.8)
[2022-02-26 05:34] LABS: Anion Gap 13 mmol/L (10-20); BUN (Urea Nitrogen) 11 mg/dL (8.9-20.6); Calc. Creatinine Clearance 87 mL/min (70-130); Carbon Dioxide 28 mmol/L (22-29); Chloride 90 mmol/L (98-107); Glucose 147 mg/dL (70-105); Potassium 3.7 mmol/L (3.5-5.1); Sodium 127 mmol/L (136-145)
[2022-02-26] MEDS: Fluconazole 100 MG TAB PO SCH (08:33)
[2022-02-26] MEDS: Sulfameth/Trimethoprim DS 800-160mg TAB PO SCH (08:33)
[2022-02-26 15:48] LABS: SARS-CoV-2 PCR by NAA Not Detected (NotDetected)
[2022-02-26] MEDS: Benzonatate 100 MG CAP PO PRN (17:30)
[2022-02-26] MEDS: guaiFENesin/DM ER PO SCH (20:30)
[2022-02-26] MEDS: Acetaminophen 325 MG TAB PO PRN (20:30)
[2022-02-27] MEDS: HYDROcodone/Acetaminophen 5/325 mg Tablet PO PRN ×5 (00:34→23:04)
[2022-02-27 05:51] LABS: Anisocytosis SLIGHT = 6-15 cells (100X) (0-5/hpf); Band 22 % (5-11); Hemoglobin 9.2 g/dL (14.0-18.0); Hypochromia SLIGHT = 6-15 cells (100X) (0-5/hpf); Lymphocytes 8 % (21-51); MDiff Complete? YES; Mean Corpuscular HGB CONC 31.2 g/dL (32.0-36.0); Mean Platelet Volume 7.6 fL (7.4-10.4); Metamyelocyte 2 % (0-0); Monocytes 5 % (0-10); Myelocyte 1 % (0-0); Neutrophil 62 % (42-75); Platelet Count 218 thou/uL (130-400); Platelet Morphology Comment Appears Adequate; RBC Distribution Width 16.2 % (11.5-14.5); Red Blood Cell (RBC) Count 3.17 mill/uL (4.70-6.10); White Blood Cell (WBC) Count 2.9 thou/uL (4.8-10.8)
[2022-02-27 05:53] LABS: Anion Gap 14 mmol/L (10-20); BUN (Urea Nitrogen) 11 mg/dL (8.9-20.6); Calc. Creatinine Clearance 98 mL/min (70-130); Calcium 7.9 mg/dL (7.8-10.44); Carbon Dioxide 24 mmol/L (22-29); Chloride 92 mmol/L (98-107); Glucose 89 mg/dL (70-105); Potassium 4.4 mmol/L (3.5-5.1); Sodium 126 mmol/L (136-145)
[2022-02-27] MEDS: Acetaminophen 325 MG TAB PO PRN (08:53)
[2022-02-27] MEDS ORDERED: Sodium Chloride 0.9% 1,000 ML IV SCH (10:00)
[2022-02-27] MEDS ORDERED: Ketorolac Tromethamine 30 MG/ML VIAL IVP PRN (10:07)
[2022-02-27] MEDS ORDERED: Ketorolac Tromethamine 30 MG/ML VIAL IVP SCH (10:15)
[2022-02-27] MEDS: Sulfameth/Trimethoprim DS 800-160mg TAB PO SCH (10:38)
[2022-02-27] MEDS: guaiFENesin/DM ER PO SCH ×2 (10:53→21:30)
[2022-02-27] MEDS: Fluconazole 100 MG TAB PO SCH (10:53)
[2022-02-27] MEDS ORDERED: Vancomycin HCl 1 GM in Sodium Chloride 0.9% 250 ML 250 ML IVPB SCH (11:00)
[2022-02-27] MEDS: Sodium Chloride 0.9% 1,000 ML IV SCH ×2 (11:22→21:29)
[2022-02-27] MEDS: Cefepime 2 GM in Sodium Chloride 0.9% 100 ML IVPB SCH ×2 (11:25→23:03)
[2022-02-27] MEDS: Vancomycin 1 GM in Premix Bag 1 BAG IVPB SCH ×2 (11:59→23:43)
[2022-02-28 05:36] LABS: Anion Gap 13 mmol/L (10-20); BUN (Urea Nitrogen) 15 mg/dL (8.9-20.6); Calc. Creatinine Clearance 90 mL/min (70-130); Calcium 7.5 mg/dL (7.8-10.44); Carbon Dioxide 21 mmol/L (22-29); Chloride 100 mmol/L (98-107); Glucose 82 mg/dL (70-105); Potassium 3.8 mmol/L (3.5-5.1); Sodium 130 mmol/L (136-145)
[2022-02-28 05:50] LABS: Band 24 % (5-11); Hemoglobin 8.9 g/dL (14.0-18.0); Hypochromia SLIGHT = 6-15 cells (100X) (0-5/hpf); Lymphocytes 10 % (21-51); MDiff Complete? YES; Mean Corpuscular Hemoglobin 29.8 pg (27.0-31.0); Mean Platelet Volume 7.5 fL (7.4-10.4); Monocytes 6 % (0-10); Neutrophil 60 % (42-75); Platelet Count 166 thou/uL (130-400); Platelet Morphology Comment Appears Adequate; RBC Distribution Width 16.1 % (11.5-14.5); Red Blood Cell (RBC) Count 2.97 mill/uL (4.70-6.10); White Blood Cell (WBC) Count 1.9 thou/uL (4.8-10.8)
[2022-02-28] MEDS: Sodium Chloride 0.9% 1,000 ML IV SCH (06:08)
[2022-02-28] MEDS: HYDROcodone/Acetaminophen 5/325 mg Tablet PO PRN (08:30)
[2022-02-28 08:35] VITALS: BP 93/55; TEMP 99.1
[2022-02-28] MEDS: Sulfameth/Trimethoprim DS 800-160mg TAB PO SCH (10:47)
[2022-02-28] MEDS: guaiFENesin/DM ER PO SCH (10:47)
[2022-02-28] MEDS: Cefepime 2 GM in Sodium Chloride 0.9% 100 ML IVPB SCH (10:47)
[2022-02-28] MEDS: Fluconazole 100 MG TAB PO SCH (10:48)
[2022-02-28 11:35] LABS: Vancomycin, Trough 13.7 ug/mL
[2022-02-28] MEDS ORDERED: Vancomycin HCl 1.25 GM in Sodium Chloride 0.9% 250 ML 250 ML IVPB SCH (12:00)
== END 2022-02-28 13:41 | disposition home or self-care (01) | DRG 975 ==
LOC: ERS 14:52 → ERHOLD 18:04 → 2SW 21:18 → 2NO 02-23 13:57 → MSONC 02-25 18:08
PROVIDERS: ADMIT Family Medicine; ATTEND Family Medicine
PROC: 3E03329 Introduction of Other Anti-infective into Peripheral Vein, Percutaneous Approach (ICD-10-PCS; principal; 2022-02-19)
PROC: 30233N1 Transfusion of Nonautologous Red Blood Cells into Peripheral Vein, Percutaneous Approach (ICD-10-PCS; 2022-02-24)
DX: A41.9 Sepsis, unspecified organism (principal); D61.818 Other pancytopenia; B20 Human immunodeficiency virus [HIV] disease; J18.9 Pneumonia, unspecified organism; B59 Pneumocystosis; E87.1 Hypo-osmolality and hyponatremia; B25.9 Cytomegaloviral disease, unspecified; E44.0 Moderate protein-calorie malnutrition; Z68.1 Body mass index [BMI] 19.9 or less, adult; R64 Cachexia; Z51.5 Encounter for palliative care; Z20.822 Contact with and (suspected) exposure to COVID-19; J45.909 Unspecified asthma, uncomplicated; G40.909 Epilepsy, unspecified, not intractable, without status epilepticus; D63.8 Anemia in other chronic diseases classified elsewhere; K20.80 Other esophagitis without bleeding; F17.210 Nicotine dependence, cigarettes, uncomplicated; R13.10 Dysphagia, unspecified; Z79.899 Other long term (current) drug therapy; Z91.14 Patient's other noncompliance with medication regimen
CPT/HCPCS: 36415; 36430; 71045; 71275; 80048; 80053; 80202; 80306; 81003; 81015; 83605; 83690; 83735; 83880; 84100; 84484; 85025; 86140; 86850; 86900; 86901; 87040; 87086; 87385; 87899; 93005; 93010; 96365; 96366; 96367; 96375; J0692; J1100; J1570; J1885; J1956; J2405; J3370; J3475; J3490; J7050; J8499; P9016; Q9967; U0003; U0005

== ENCOUNTER 2022-03-04 13:49 | Emergency (ER) | payer OTHER, SELFPAY ==
[2022-03-04] MEDS ORDERED: EPINEPHrine 1 MG/10 ML Abboject SYRINGE ONE (13:50)
== END 2022-03-04 13:53 | disposition expired ==
LOC: ERS 13:49
DX: I46.9 Cardiac arrest, cause unspecified (principal); J45.909 Unspecified asthma, uncomplicated; Z21 Asymptomatic human immunodeficiency virus [HIV] infection status
CPT/HCPCS: 31500; 96374